=== PATIENT | male | born 1980 | race Caucasian/White ===

== ENCOUNTER 2016-09-10 08:55 | Inpatient (IN) | payer MEDICAID, OTHER ==
[~2016-09-10] VITALS: Ht 177.8 cm; Wt 77.3 kg
[~2016-09-10 08:55] MED LIST: DIVA500T35 PO; RISP1 PO; TRAZ-144 PO
[2016-09-10 13:33] VITALS: BP 105/53
[2016-09-10] MEDS ORDERED: HALOPERIDOL 5 MG TABLET PO PRN (13:45)
[2016-09-10] MEDS ORDERED: INFLUENZA VIRUS VACCINE QVS 2016-17 (3YR+)/PF 60 MCG/0.5 ML SYRINGE IM ONE (14:00)
[2016-09-10] MEDS ORDERED: PNEUMOCOCCAL VACCINE POLYVALENT 0.5 ML VIAL [PPSV23] IM ONE (14:30)
[2016-09-10] MEDS ORDERED: DEXT10TA19 PO (14:40)
[2016-09-10] MEDS ORDERED: QUET25TA PO (14:40)
[2016-09-10 16:00] VITALS: BP 127/76
[2016-09-10] MEDS: QUEtiapine FUMARATE 25 MG TABLET PO SCH (20:41)
[2016-09-11 06:15] VITALS: BP 112/67
[2016-09-11] MEDS ORDERED: LOPERAMIDE HCL 2 MG CAPSULE PO PRN (09:45)
[2016-09-11] MEDS ORDERED: PETROLATUM,WHITE 71 GM JELLY TP PRN (09:45)
[2016-09-11] MEDS ORDERED: MAGNESIUM HYDROXIDE SUSPENSION 30 ML UDCUP PO PRN (09:45)
[2016-09-11] MEDS ORDERED: IBUPROFEN 600 MG TABLET PO PRN (09:45)
[2016-09-11] MEDS ORDERED: BENZOCAINE/MENTHOL LOZENGE MM PRN (09:45)
[2016-09-11] MEDS ORDERED: ALBUTEROL SULFATE HFA 90 MCG/PUFF 8 GM INHALER IH PRN (09:45)
[2016-09-11] MEDS ORDERED: MAG HYDROX/AL HYDROX/SIMETH ES 30 ML SUSPENSION UDCUP PO PRN (09:45)
[2016-09-11] MEDS ORDERED: BACITRACIN 28.4 GM OINTMENT TP PRN (09:45)
[2016-09-11] MEDS ORDERED: ACETAMINOPHEN 325 MG TABLET PO PRN (09:45)
[2016-09-11] MEDS ORDERED: CloNIDine HCL 0.1 MG TABLET PO PRN (09:45)
[2016-09-11] MEDS ORDERED: ONDANSETRON HCL 4 MG TABLET PO PRN (09:45)
[2016-09-11] MEDS: PHENYTOIN SODIUM 100 MG ER CAPSULE PO SCH ×2 (13:00→13:15)
[2016-09-11 16:11] VITALS: BP 121/75
[2016-09-11] MEDS: LevETIRAcetam 500 MG TABLET PO SCH (16:51)
[2016-09-11] MEDS: QUEtiapine FUMARATE 25 MG TABLET PO SCH (20:31)
[2016-09-12 07:03] VITALS: BP 114/67
[2016-09-12] MEDS: LevETIRAcetam 500 MG TABLET PO SCH ×2 (08:54→16:05)
[2016-09-12 16:03] VITALS: BP 121/89
[2016-09-12] MEDS: LORazepam 2 MG TABLET PO PRN (16:05)
[2016-09-12] MEDS: QUEtiapine FUMARATE 25 MG TABLET PO SCH (20:26)
[2016-09-13] MEDS: LevETIRAcetam 500 MG TABLET PO SCH ×2 (09:00→16:59)
[2016-09-13 16:00] VITALS: BP 124/77
[2016-09-13] MEDS: DIVALPROEX SODIUM 500 MG DR TABLET PO SCH (16:59)
[2016-09-13] MEDS: RisperiDONE 2 MG TABLET PO SCH (16:59)
[2016-09-13] MEDS: LORazepam 2 MG TABLET PO PRN ×2 (16:59→21:05)
[2016-09-13] MEDS: ZOLPIDEM TARTRATE 10 MG TABLET PO PRN (20:36)
[2016-09-14 06:41] VITALS: BP 106/69
[2016-09-14] MEDS: LORazepam 2 MG TABLET PO PRN ×2 (06:46→17:10)
[2016-09-14] MEDS: LevETIRAcetam 500 MG TABLET PO SCH ×2 (09:00→17:10)
[2016-09-14] MEDS: RisperiDONE 2 MG TABLET PO SCH ×2 (09:00→17:00)
[2016-09-14] MEDS: DIVALPROEX SODIUM 500 MG DR TABLET PO SCH ×2 (09:00→17:00)
[2016-09-14 16:00] VITALS: BP 145/68
[2016-09-14] MEDS: ZOLPIDEM TARTRATE 10 MG TABLET PO PRN (21:02)
[2016-09-15 06:31] VITALS: BP 122/60
[2016-09-15] MEDS: RisperiDONE 2 MG TABLET PO SCH ×2 (09:00→17:00)
[2016-09-15] MEDS: DIVALPROEX SODIUM 500 MG DR TABLET PO SCH ×2 (09:00→17:00)
[2016-09-15] MEDS: LevETIRAcetam 500 MG TABLET PO SCH ×2 (09:37→17:16)
[2016-09-15] MEDS: NICOTINE 21 MG/24 HOUR PATCH TD SCH (12:09)
[2016-09-15] MEDS: LORazepam 2 MG TABLET PO PRN ×2 (14:52→20:28)
[2016-09-15 16:06] VITALS: BP 130/76
[2016-09-15] MEDS: QUEtiapine FUMARATE 300 MG TABLET PO SCH (20:28)
[2016-09-16 06:36] VITALS: BP 122/71
[2016-09-16] MEDS: DIVALPROEX SODIUM 500 MG DR TABLET PO SCH ×2 (09:00→16:21)
[2016-09-16] MEDS: NICOTINE 21 MG/24 HOUR PATCH TD SCH (09:13)
[2016-09-16] MEDS: LevETIRAcetam 500 MG TABLET PO SCH ×2 (09:13→16:20)
[2016-09-16 16:00] VITALS: BP 110/76
[2016-09-16] MEDS: LORazepam 2 MG TABLET PO PRN (20:26)
[2016-09-16] MEDS: QUEtiapine FUMARATE 300 MG TABLET PO SCH (20:26)
[2016-09-17 07:12] VITALS: BP 112/74
[2016-09-17] MEDS: DIVALPROEX SODIUM 500 MG DR TABLET PO SCH (09:00)
[2016-09-17] MEDS ORDERED: DIVA500T35 PO (09:12)
[2016-09-17] MEDS ORDERED: QUET300T2 PO (09:12)
[2016-09-17] MEDS: LevETIRAcetam 500 MG TABLET PO SCH (09:34)
[2016-09-17] MEDS: NICOTINE 21 MG/24 HOUR PATCH TD SCH (09:35)
== END 2016-09-17 10:10 | disposition home or self-care (01) | DRG 750 ==
LOC: B3A 13:44 → EDSTATUS 14:10
PROVIDERS: ADMIT Psychiatry & Neurology Psychiatry; ATTEND Psychiatry & Neurology Psychiatry
DX: F25.9 Schizoaffective disorder, unspecified (principal); G40.909 Epilepsy, unspecified, not intractable, without status epilepticus; F17.210 Nicotine dependence, cigarettes, uncomplicated; Z71.6 Tobacco abuse counseling; Z72.89 Other problems related to lifestyle; Z88.0 Allergy status to penicillin; Z28.21 Immunization not carried out because of patient refusal
CPT/HCPCS: 90471

== ENCOUNTER 2018-02-05 12:35 | Inpatient (IN) | payer SELFPAY ==
[~2018-02-05] VITALS: Ht 182.9 cm; Wt 88.0 kg
[2018-02-05 11:52] VITALS: BP 136/85
[~2018-02-05 12:35] MED LIST changes: +DIVA-78 PO; -DIVA500T35 PO; +QUET300T2 PO; -RISP1 PO; -TRAZ-144 PO
[2018-02-05] MEDS ORDERED: LORazepam 2 MG TABLET PO PRN (13:00)
[2018-02-05] MEDS ORDERED: ZOLPIDEM TARTRATE 10 MG TABLET PO PRN (13:00)
[2018-02-05] MEDS ORDERED: HALOPERIDOL 5 MG TABLET PO PRN (13:00)
[2018-02-05] MEDS ORDERED: RISP2 PO (13:06)
[2018-02-05] MEDS ORDERED: PHEN100C23 PO (13:06)
[2018-02-05] MEDS ORDERED: DIVA-76 PO (13:06)
[2018-02-05] MEDS ORDERED: LEVE250T55 PO (13:06)
[2018-02-05] MEDS ORDERED: PNEUMOCOCCAL VACCINE POLYVALENT 0.5 ML VIAL [PPSV23] IM ONE (13:30)
[2018-02-05 18:57] VITALS: BP 124/81
[2018-02-05] MEDS ORDERED: PETROLATUM,WHITE 71 GM JELLY TP PRN (21:45)
[2018-02-05] MEDS ORDERED: DOCUSATE SODIUM 100 MG CAPSULE PO PRN (21:45)
[2018-02-05] MEDS ORDERED: ACETAMINOPHEN 325 MG TABLET PO PRN (21:45)
[2018-02-05] MEDS ORDERED: MAG HYDROX/AL HYDROX/SIMETH ES 30 ML SUSPENSION UDCUP PO PRN (21:45)
[2018-02-05] MEDS ORDERED: CloNIDine HCL 0.1 MG TABLET PO PRN (21:45)
[2018-02-05] MEDS ORDERED: LOPERAMIDE HCL 2 MG CAPSULE PO PRN (21:45)
[2018-02-05] MEDS ORDERED: IBUPROFEN 400 MG TABLET PO PRN (21:45)
[2018-02-05] MEDS ORDERED: MAGNESIUM HYDROXIDE SUSPENSION 30 ML UDCUP PO PRN (21:45)
[2018-02-05] MEDS ORDERED: ONDANSETRON HCL 4 MG TABLET PO PRN (21:45)
[2018-02-05] MEDS ORDERED: ALBUTEROL SULFATE HFA 90 MCG/PUFF 8 GM INHALER IH PRN (21:45)
[2018-02-06 06:42] VITALS: BP 119/85
[2018-02-06] MEDS: PHENYTOIN SODIUM 100 MG ER CAPSULE PO SCH ×3 (08:50→17:00)
[2018-02-06] MEDS: LevETIRAcetam 500 MG TABLET PO SCH ×2 (08:50→17:28)
[2018-02-06] MEDS: NICOTINE 14 MG/24 HOUR PATCH TD SCH (09:18)
[2018-02-06] MEDS ORDERED: HydrOXYzine PAMOATE 25 MG CAPSULE PO PRN (13:00)
[2018-02-06] MEDS ORDERED: LORazepam 1 MG TABLET PO PRN (13:15)
[2018-02-06 16:24] VITALS: BP 110/70
[2018-02-06] MEDS: LORazepam 2 MG TABLET PO PRN (17:33)
[2018-02-07] MEDS: PHENYTOIN SODIUM 100 MG ER CAPSULE PO SCH ×3 (08:25→16:27)
[2018-02-07] MEDS: NICOTINE 14 MG/24 HOUR PATCH TD SCH (08:25)
[2018-02-07] MEDS: LevETIRAcetam 500 MG TABLET PO SCH ×2 (08:26→16:28)
[2018-02-07] MEDS: BuPROPion HCL XL 150 MG ER TABLET PO SCH (09:30)
[2018-02-07] MEDS: LORazepam 2 MG TABLET PO PRN (16:28)
[2018-02-07] MEDS: QUEtiapine FUMARATE 100 MG TABLET PO SCH (20:29)
[2018-02-08 08:35] VITALS: BP 122/84
[2018-02-08] MEDS: PHENYTOIN SODIUM 100 MG ER CAPSULE PO SCH (09:00)
[2018-02-08] MEDS: NICOTINE 14 MG/24 HOUR PATCH TD SCH (09:00)
[2018-02-08] MEDS: BuPROPion HCL XL 150 MG ER TABLET PO SCH (09:02)
[2018-02-08] MEDS: LevETIRAcetam 500 MG TABLET PO SCH ×2 (09:02→17:02)
[2018-02-08] MEDS: LORazepam 2 MG TABLET PO PRN (17:02)
[2018-02-08] MEDS: QUEtiapine FUMARATE 100 MG TABLET PO SCH (21:15)
[2018-02-09] MEDS: LevETIRAcetam 500 MG TABLET PO SCH ×2 (08:18→16:32)
[2018-02-09] MEDS: BuPROPion HCL XL 150 MG ER TABLET PO SCH (08:18)
[2018-02-09] MEDS: NICOTINE 14 MG/24 HOUR PATCH TD SCH (08:18)
[2018-02-09] MEDS: LORazepam 2 MG TABLET PO PRN ×2 (13:48→21:23)
[2018-02-09 20:42] VITALS: BP 132/91
[2018-02-09] MEDS: QUEtiapine FUMARATE 100 MG TABLET PO SCH (21:18)
[2018-02-10] MEDS: LevETIRAcetam 500 MG TABLET PO SCH (08:50)
[2018-02-10] MEDS: BuPROPion HCL XL 150 MG ER TABLET PO SCH (08:50)
[2018-02-10] MEDS: NICOTINE 14 MG/24 HOUR PATCH TD SCH ×2 (08:50→11:31)
[2018-02-10] MEDS ORDERED: BUPR-93 PO (08:55)
[2018-02-10] MEDS ORDERED: QUET100T PO (08:55)
[2018-02-10] MEDS: LORazepam 2 MG TABLET PO PRN (11:29)
== END 2018-02-10 13:30 | disposition home or self-care (01) | DRG 885 ==
LOC: EDSTATUS 12:35 → B3A 19:02 → EDSTATUS 19:10
PROVIDERS: ADMIT Psychiatry & Neurology Psychiatry; ATTEND Psychiatry & Neurology Psychiatry
DX: F25.0 Schizoaffective disorder, bipolar type (principal); F15.20 Other stimulant dependence, uncomplicated; J45.909 Unspecified asthma, uncomplicated; G40.909 Epilepsy, unspecified, not intractable, without status epilepticus; F41.9 Anxiety disorder, unspecified; F19.90 Other psychoactive substance use, unspecified, uncomplicated; F17.200 Nicotine dependence, unspecified, uncomplicated; F10.10 Alcohol abuse, uncomplicated; F12.90 Cannabis use, unspecified, uncomplicated; Z59.0 Homelessness; Z76.5 Malingerer [conscious simulation]; Z79.899 Other long term (current) drug therapy; Z91.5 Personal history of self-harm; Z85.72 Personal history of non-Hodgkin lymphomas; Z71.41 Alcohol abuse counseling and surveillance of alcoholic; Z71.6 Tobacco abuse counseling; Z88.0 Allergy status to penicillin
CPT/HCPCS: 90471

== ENCOUNTER 2018-02-05 13:13 | Emergency (ER) | payer SELFPAY ==
[~2018-02-05] VITALS: Ht 180.3 cm; Wt 100.0 kg
[~2018-02-05 13:13] MED LIST changes: +DIVA-76 PO; +LEVE250T55 PO; +PHEN100C23 PO; +RISP2 PO
[2018-02-05] MEDS ORDERED: LORazepam 2 MG TABLET PO ONE (14:30)
[2018-02-05 14:44] LABS: BASOPHILS % (AUTO) 1.1 % (0.0-2.0); EOSINOPHILS % (AUTO) 3.8 % (1.0-6.0); HEMATOCRIT 42.2 % (41-53); HEMOGLOBIN 14.2 g/dL (13.5-17.5); LYMPHOCYTES # (AUTO) 2.1 K/uL (1.0-4.8); LYMPHOCYTES % (AUTO) 22.2 % (22.0-44.0); MEAN CORPUSCULAR HEMOGLOBIN 28.2 pg (26.0-34.0); MEAN CORPUSCULAR HGB CONC 33.5 G/dL (31.0-37.0); MEAN CORPUSCULAR VOLUME 84 fL (80-100); MONOCYTES # (AUTO) 0.8 K/uL (0.1-1.0); MONOCYTES % (AUTO) 8.6 % (2.0-9.0); NEUTROPHILS % (AUTO) 64.3 % (40.0-70.0); PLATELET COUNT (AUTO) 349 K/uL (150-450); RED BLOOD CELL COUNT(AUTO) 5.03 MIL/uL (4.50-5.90); RED CELL DISTRIBUTION WIDTH 15.8 % (11.5-14.5)
[2018-02-05 15:01] LABS: ANION GAP 10 mmol/L (8-16); CALCIUM, TOTAL 9.1 mg/dL (8.8-10.5); CARBON DIOXIDE 28 mmol/L (22-29); CHLORIDE 103 mmol/L (98-107); CREATININE 0.99 mg/dL (0.60-1.30); GLOMERULAR FILTR. RATE CALC > 60 mL/min (>60); GLUCOSE,RANDOM 103 mg/dL (70-110); SODIUM SERUM 141 mmol/L (136-145); UREA NITROGEN, BLOOD 16 mg/dL (7-18)
[2018-02-05 15:07] LABS: ALANINE AMINOTRANSFERASE 20 U/L (12-78); ALBUMIN 3.4 g/dL (3.4-5.0); ALKALINE PHOSPHATASE 68 U/L (46-116); ASPARTATE AMINOTRANSFERASE 13 U/L (15-37); BILIRUBIN,TOTAL 0.3 mg/dL (0.1-1.0); TOTAL PROTEIN, SERUM 7.1 g/dL (6.4-8.2)
[2018-02-05 15:18] LABS: PHENYTOIN (DILANTIN) 1.2 mcg/mL (10.0-20.0)
[2018-02-05 15:19] LABS: APPEARANCE,URINE CLOUDY (CLEAR); GLUCOSE, URINE (UA) NEGATIVE (NEGATIVE); KETONES,URINE NEGATIVE (NEGATIVE); LEUKOCYTE ESTERASE ,URINE NEGATIVE (NEGATIVE); NITRATE,URINE NEGATIVE (NEGATIVE); OCCULT BLOOD,URINE NEGATIVE (NEGATIVE); PH,URINE 5.5 (5.0-8.0); PROTEIN,URINE POS 1+ (NEGATIVE)
[2018-02-05 15:23] LABS: VALPROIC ACID < 3 mcg/mL (50-100)
[2018-02-05 15:23] LABS: BILIRUBIN,URINE PRELIM. POSITIVE (NEGATIVE)
[2018-02-05 15:25] LABS: AMPHET/METH SCREEN,URINE POSITIVE (NEGATIVE); BARBITURATE SCREEN, URINE NEGATIVE (NEGATIVE); BENZODIAZEPINES SCREEN,URINE NEGATIVE (NEGATIVE); CANNABINOID SCREEN,URINE POSITIVE (NEGATIVE); COCAINE SCREEN,URINE NEGATIVE (NEGATIVE); METHADONE SCREEN, URINE NEGATIVE (NEGATIVE); OPIATE SCREEN,URINE NEGATIVE (NEGATIVE); PHENCYCLIDINE SCREEN,URINE NEGATIVE (NEGATIVE)
[2018-02-05 15:43] LABS: BACTERIA,URINE Few /HPF (None Seen); RBC,URINE 0-2 /HPF (0-2); WBC,URINE 0-2 /HPF (0-5)
[2018-02-05 15:44] LABS: SQUAMOUS EPITHELIAL CELL,UR Rare /LPF (None Seen)
[2018-02-05 15:46] LABS: CALCIUM OXALATE CRYSTALS,UR Many /LPF (None Seen); MUCUS,URINE Moderate LPF (None Seen)
[2018-02-05 15:48] VITALS: BP 119/80
== END 2018-02-05 17:49 | disposition home or self-care (01) ==
LOC: EMS 13:15
DX: G40.909 Epilepsy, unspecified, not intractable, without status epilepticus (principal); F17.210 Nicotine dependence, cigarettes, uncomplicated; Z88.0 Allergy status to penicillin
CPT/HCPCS: 93005; 99285

== ENCOUNTER 2018-03-19 18:31 | Inpatient (IN) | payer MEDICAID ==
[~2018-03-19] VITALS: Ht 165.1 cm; Wt 86.0 kg
[~2018-03-19 18:31] MED LIST changes: +BUSP10TA23 PO; -DIVA-76 PO; -DIVA-78 PO; +MULT-248 PO; -PHEN100C23 PO; +QUET25TA PO; -QUET300T2 PO; -RISP2 PO; +VITA1TAB22 PO
[2018-03-19 20:23] LABS: GLUCOSE,POINT OF CARE 107 MG/DL (70-110)
[2018-03-19 20:33] LABS: BASOPHILS % (AUTO) 0.7 % (0.0-2.0); EOSINOPHILS % (AUTO) 1.6 % (1.0-6.0); HEMATOCRIT 43.8 % (41-53); HEMOGLOBIN 14.7 g/dL (13.5-17.5); LYMPHOCYTES # (AUTO) 2.7 K/uL (1.0-4.8); LYMPHOCYTES % (AUTO) 25.1 % (22.0-44.0); MEAN CORPUSCULAR HEMOGLOBIN 28.3 pg (26.0-34.0); MEAN CORPUSCULAR HGB CONC 33.5 G/dL (31.0-37.0); MEAN CORPUSCULAR VOLUME 84 fL (80-100); MONOCYTES % (AUTO) 9.4 % (2.0-9.0); NEUTROPHILS # (AUTO) 6.8 K/uL (1.8-7.7); NEUTROPHILS % (AUTO) 63.2 % (40.0-70.0); PLATELET COUNT (AUTO) 459 K/uL (150-450); RED BLOOD CELL COUNT(AUTO) 5.19 MIL/uL (4.50-5.90); RED CELL DISTRIBUTION WIDTH 15.4 % (11.5-14.5)
[2018-03-19 21:01] LABS: ANION GAP 10 mmol/L (8-16); CALCIUM, TOTAL 9.7 mg/dL (8.8-10.5); CARBON DIOXIDE 25 mmol/L (22-29); CHLORIDE 104 mmol/L (98-107); GLOMERULAR FILTR. RATE CALC > 60 mL/min (>60); GLUCOSE,RANDOM 100 mg/dL (70-110); POTASSIUM 3.7 mmol/L (3.5-5.1); SODIUM SERUM 139 mmol/L (136-145); UREA NITROGEN, BLOOD 16 mg/dL (7-18)
[2018-03-19 21:06] LABS: ALANINE AMINOTRANSFERASE 16 U/L (12-78); ALBUMIN 3.8 g/dL (3.4-5.0); ALKALINE PHOSPHATASE 61 U/L (46-116); ASPARTATE AMINOTRANSFERASE 15 U/L (15-37); BILIRUBIN,TOTAL 0.4 mg/dL (0.1-1.0); TOTAL PROTEIN, SERUM 7.9 g/dL (6.4-8.2)
[2018-03-19 21:23] LABS: APPEARANCE,URINE CLEAR (CLEAR); BILIRUBIN,URINE NEGATIVE (NEGATIVE); GLUCOSE, URINE (UA) NEGATIVE (NEGATIVE); KETONES,URINE TRACE mg/dL (NEGATIVE); LEUKOCYTE ESTERASE ,URINE NEGATIVE (NEGATIVE); NITRATE,URINE NEGATIVE (NEGATIVE); OCCULT BLOOD,URINE MODERATE (NEGATIVE); PROTEIN,URINE NEGATIVE (NEGATIVE); UROBILINOGEN,URINE 0.2 mg/dL (<=1.0)
[2018-03-19 21:26] LABS: INR 1.1 (0.9-1.1)
[2018-03-19 21:27] LABS: AMPHET/METH SCREEN,URINE POSITIVE (NEGATIVE); BARBITURATE SCREEN, URINE NEGATIVE (NEGATIVE); BENZODIAZEPINES SCREEN,URINE NEGATIVE (NEGATIVE); CANNABINOID SCREEN,URINE POSITIVE (NEGATIVE); COCAINE SCREEN,URINE NEGATIVE (NEGATIVE); METHADONE SCREEN, URINE NEGATIVE (NEGATIVE); OPIATE SCREEN,URINE NEGATIVE (NEGATIVE)
[2018-03-19 21:31] LABS: PHENCYCLIDINE SCREEN,URINE NEGATIVE (NEGATIVE)
[2018-03-19 21:37] LABS: AMMONIA 90 umol/L (11-32)
[2018-03-19 21:42] LABS: TROPONIN I < 0.02 ng/mL (0.00-0.05)
[2018-03-19 21:46] LABS: WBC,URINE 0-2 /HPF (0-5)
[2018-03-19 21:47] LABS: BACTERIA,URINE Rare /HPF (None Seen); SQUAMOUS EPITHELIAL CELL,UR Rare /LPF (None Seen)
[2018-03-19 21:54] LABS: CREATINE KINASE MB 0.5 ng/mL (0-5); CREATINE KINASE, TOTAL ONLY 122 U/L (39-308)
[2018-03-19] MEDS ORDERED: LACTULOSE 200 GM/300 ML RECTAL SOLUTION PR ONE (22:00)
[2018-03-19] MEDS ORDERED: ONDANSETRON HCL 4 MG/2 ML VIAL IVP PRN ×2 (22:30→22:45)
[2018-03-19] MEDS ORDERED: 0.9% SODIUM CHLORIDE 10 ML SYRINGE IVP PRN (22:30)
[2018-03-19] MEDS ORDERED: ACETAMINOPHEN 325 MG TABLET PO PRN ×2 (22:30→22:45)
[2018-03-19] MEDS ORDERED: BISACODYL 10 MG RECTAL RECTAL SUPPOSITORY PR PRN (22:45)
[2018-03-19] MEDS ORDERED: HYDROCODONE/ACETAMINOPHEN 5-325 MG TABLET PO PRN (22:45)
[2018-03-19] MEDS ORDERED: MAGNESIUM HYDROXIDE SUSPENSION 30 ML UDCUP PO PRN (22:45)
[2018-03-19] MEDS ORDERED: ZOLPIDEM TARTRATE 5 MG TABLET PO PRN (22:45)
[2018-03-19] MEDS ORDERED: MORPHINE SULFATE 2 MG/ML SYRINGE IVP PRN (22:45)
[2018-03-19 23:15] VITALS: BP 140/107
[2018-03-20] MEDS: LACTULOSE 20 GM/30 ML SOLUTION UDCUP PO SCH ×3 (02:38→20:50)
[2018-03-20 05:13] VITALS: BP 122/79
[2018-03-20] MEDS: HEPARIN SODIUM,PORCINE 5,000 UNITS/ML VIAL SQ SCH ×3 (08:00→16:00)
[2018-03-20 08:03] LABS: BASOPHILS % (AUTO) 0.4 % (0.0-2.0); EOSINOPHILS % (AUTO) 0.8 % (1.0-6.0); HEMATOCRIT 45.7 % (41-53); HEMOGLOBIN 15.5 g/dL (13.5-17.5); LYMPHOCYTES # (AUTO) 0.8 K/uL (1.0-4.8); LYMPHOCYTES % (AUTO) 5.4 % (22.0-44.0); MEAN CORPUSCULAR HEMOGLOBIN 28.3 pg (26.0-34.0); MEAN CORPUSCULAR HGB CONC 33.8 G/dL (31.0-37.0); MEAN CORPUSCULAR VOLUME 84 fL (80-100); MONOCYTES # (AUTO) 0.7 K/uL (0.1-1.0); MONOCYTES % (AUTO) 4.9 % (2.0-9.0); NEUTROPHILS # (AUTO) 13.3 K/uL (1.8-7.7); PLATELET COUNT (AUTO) 502 K/uL (150-450); RED BLOOD CELL COUNT(AUTO) 5.46 MIL/uL (4.50-5.90); RED CELL DISTRIBUTION WIDTH 15.5 % (11.5-14.5)
[2018-03-20 08:05] VITALS: BP 129/87
[2018-03-20 08:05] LABS: NEUTROPHILS % (AUTO) 88.5 % (40.0-70.0)
[2018-03-20 08:28] LABS: ALANINE AMINOTRANSFERASE 20 U/L (12-78); ALBUMIN 4.2 g/dL (3.4-5.0); ALKALINE PHOSPHATASE 73 U/L (46-116); ANION GAP 13 mmol/L (8-16); ASPARTATE AMINOTRANSFERASE 11 U/L (15-37); BILIRUBIN,TOTAL 0.5 mg/dL (0.1-1.0); CALCIUM, TOTAL 9.9 mg/dL (8.8-10.5); CARBON DIOXIDE 24 mmol/L (22-29); CHLORIDE 104 mmol/L (98-107); CREATININE 1.22 mg/dL (0.60-1.30); GLOMERULAR FILTR. RATE CALC > 60 mL/min (>60); GLUCOSE,RANDOM 103 mg/dL (70-110); SODIUM SERUM 141 mmol/L (136-145); TOTAL PROTEIN, SERUM 8.9 g/dL (6.4-8.2); UREA NITROGEN, BLOOD 14 mg/dL (7-18)
[2018-03-20] MEDS: LevETIRAcetam 250 MG TABLET PO SCH ×2 (08:42→20:50)
[2018-03-20] MEDS: DOCUSATE SODIUM 100 MG CAPSULE PO SCH ×2 (08:42→20:50)
[2018-03-20] MEDS: MULTIVITAMINS WITH MINERALS, THERAPEUTIC TABLET PO SCH (08:42)
[2018-03-20] MEDS: VITAMIN B COMPLEX ER TABLET PO SCH (08:42)
[2018-03-20] MEDS: PANTOPRAZOLE SODIUM 40 MG DR TABLET PO SCH (08:42)
[2018-03-20] MEDS ORDERED: LACTULOSE 200 GM/300 ML RECTAL SOLUTION PR SCH (09:00)
[2018-03-20] MEDS ORDERED: MAGNESIUM SULFATE 2 GM/WATER 50 ML IV PRN (10:45)
[2018-03-20] MEDS ORDERED: POTASSIUM CHLORIDE 20 MEQ ER TABLET PO PRN (10:45)
[2018-03-20] MEDS ORDERED: MAGNESIUM OXIDE 400 MG TABLET PO PRN (10:45)
[2018-03-20] MEDS ORDERED: POTASSIUM CHL 10 MEQ/WATER 50 ML IV PRN (10:45)
[2018-03-20] MEDS ORDERED: MAGNESIUM SULFATE 4 GM/WATER 100 ML IV PRN (10:45)
[2018-03-20 11:45] VITALS: BP 119/78
[2018-03-20 15:54] VITALS: BP 114/89
[2018-03-20 19:41] VITALS: BP 105/67
[2018-03-20 23:24] VITALS: BP 115/73
[2018-03-21 06:22] LABS: BASOPHILS % (AUTO) 0.6 % (0.0-2.0); EOSINOPHILS % (AUTO) 2.7 % (1.0-6.0); HEMATOCRIT 45.8 % (41-53); LYMPHOCYTES # (AUTO) 2.1 K/uL (1.0-4.8); LYMPHOCYTES % (AUTO) 22.6 % (22.0-44.0); MEAN CORPUSCULAR HEMOGLOBIN 27.6 pg (26.0-34.0); MEAN CORPUSCULAR HGB CONC 32.8 G/dL (31.0-37.0); MEAN CORPUSCULAR VOLUME 84 fL (80-100); MONOCYTES # (AUTO) 0.9 K/uL (0.1-1.0); MONOCYTES % (AUTO) 9.1 % (2.0-9.0); NEUTROPHILS # (AUTO) 6.1 K/uL (1.8-7.7); PLATELET COUNT (AUTO) 482 K/uL (150-450); RED BLOOD CELL COUNT(AUTO) 5.44 MIL/uL (4.50-5.90); RED CELL DISTRIBUTION WIDTH 15.3 % (11.5-14.5)
[2018-03-21 07:04] LABS: ANION GAP 12 mmol/L (8-16); CARBON DIOXIDE 22 mmol/L (22-29); CHLORIDE 103 mmol/L (98-107); CREATININE 1.03 mg/dL (0.60-1.30); GLOMERULAR FILTR. RATE CALC > 60 mL/min (>60); GLUCOSE,RANDOM 86 mg/dL (70-110); POTASSIUM 3.8 mmol/L (3.5-5.1); SODIUM SERUM 137 mmol/L (136-145); UREA NITROGEN, BLOOD 16 mg/dL (7-18)
[2018-03-21 07:10] VITALS: BP 116/72
[2018-03-21] MEDS: LACTULOSE 20 GM/30 ML SOLUTION UDCUP PO SCH (08:06)
[2018-03-21] MEDS: MULTIVITAMINS WITH MINERALS, THERAPEUTIC TABLET PO SCH (08:32)
[2018-03-21] MEDS: HEPARIN SODIUM,PORCINE 5,000 UNITS/ML VIAL SQ SCH ×2 (08:32)
[2018-03-21] MEDS: VITAMIN B COMPLEX ER TABLET PO SCH (08:32)
[2018-03-21] MEDS: PANTOPRAZOLE SODIUM 40 MG DR TABLET PO SCH (08:32)
[2018-03-21] MEDS: LevETIRAcetam 250 MG TABLET PO SCH (08:33)
[2018-03-21] MEDS: DOCUSATE SODIUM 100 MG CAPSULE PO SCH (08:33)
[2018-03-21 11:49] VITALS: BP 123/78
[2018-03-21] MEDS ORDERED: LACT30L PO (14:34)
== END 2018-03-21 15:20 | disposition home or self-care (01) | DRG 279 ==
LOC: EMS 18:33 → 6N 22:00
PROVIDERS: ADMIT Internal Medicine; ATTEND Internal Medicine
DX: K72.00 Acute and subacute hepatic failure without coma (principal); F20.9 Schizophrenia, unspecified; F10.10 Alcohol abuse, uncomplicated; F17.200 Nicotine dependence, unspecified, uncomplicated; F41.9 Anxiety disorder, unspecified; G40.909 Epilepsy, unspecified, not intractable, without status epilepticus; I10 Essential (primary) hypertension; J45.909 Unspecified asthma, uncomplicated; Z85.72 Personal history of non-Hodgkin lymphomas; Z59.0 Homelessness; Z71.41 Alcohol abuse counseling and surveillance of alcoholic; Z71.6 Tobacco abuse counseling; Z79.899 Other long term (current) drug therapy; Z88.0 Allergy status to penicillin
CPT/HCPCS: 70450; 76700; 83735; 87040; 99285; G0480; J1644

== ENCOUNTER 2019-01-11 21:33 | Inpatient (IN) | payer MEDICAID ==
[~2019-01-11] VITALS: Ht 180.3 cm; Wt 109.3 kg
[~2019-01-11 21:33] MED LIST changes: +LACT30L PO; +LAMO5TAB3 PO
[2019-01-11] MEDS ORDERED: HALOPERIDOL 5 MG TABLET PO PRN (22:15)
[2019-01-11] MEDS ORDERED: ZOLPIDEM TARTRATE 10 MG TABLET PO PRN (22:15)
[2019-01-11 22:42] VITALS: BP 140/93
[2019-01-11] MEDS ORDERED: PNEUMOCOCCAL VACCINE POLYVALENT 0.5 ML VIAL [PPSV23] IM ONE (22:45)
[2019-01-12 00:23] VITALS: BP 132/90
[2019-01-12] MEDS ORDERED: DOCUSATE SODIUM 100 MG CAPSULE PO PRN (07:00)
[2019-01-12] MEDS ORDERED: ALBUTEROL SULFATE HFA 90 MCG/PUFF 8 GM INHALER IH PRN (07:00)
[2019-01-12] MEDS ORDERED: GuaiFENesin/D-METHORPHAN [SUGAR-FREE] 200-20MG/10 ML SYRUP UDCUP PO PRN (07:00)
[2019-01-12] MEDS ORDERED: CloNIDine HCL 0.1 MG TABLET PO PRN (07:00)
[2019-01-12] MEDS ORDERED: IBUPROFEN 400 MG TABLET PO PRN (07:00)
[2019-01-12] MEDS ORDERED: ONDANSETRON HCL 4 MG TABLET PO PRN (07:00)
[2019-01-12] MEDS ORDERED: MAG HYDROX/AL HYDROX/SIMETH ES 30 ML SUSPENSION UDCUP PO PRN (07:00)
[2019-01-12] MEDS ORDERED: PETROLATUM,WHITE 28 GM JELLY TP PRN (07:00)
[2019-01-12] MEDS ORDERED: LOPERAMIDE HCL 2 MG CAPSULE PO PRN (07:00)
[2019-01-12] MEDS ORDERED: MAGNESIUM HYDROXIDE SUSPENSION 30 ML UDCUP PO PRN (07:00)
[2019-01-12] MEDS ORDERED: ACETAMINOPHEN 325 MG TABLET PO PRN (07:00)
[2019-01-12] MEDS ORDERED: NICOTINE 14 MG/24 HOUR PATCH TD PRN (07:00)
[2019-01-12 08:41] LABS: BASOPHILS % (AUTO) 0.4 % (0.0-2.0); EOSINOPHILS % (AUTO) 3.2 % (1.0-6.0); HEMOGLOBIN 12.1 g/dL (13.5-17.5); LYMPHOCYTES % (AUTO) 22.9 % (22.0-44.0); MEAN CORPUSCULAR HEMOGLOBIN 27.4 pg (26.0-34.0); MEAN CORPUSCULAR HGB CONC 31.8 G/dL (31.0-37.0); MEAN CORPUSCULAR VOLUME 86 fL (80-100); MONOCYTES # (AUTO) 0.9 K/uL (0.1-1.0); MONOCYTES % (AUTO) 10.5 % (2.0-9.0); NEUTROPHILS # (AUTO) 5.4 K/uL (1.8-7.7); PLATELET COUNT (AUTO) 276 K/uL (150-450); RED BLOOD CELL COUNT(AUTO) 4.42 MIL/uL (4.50-5.90); RED CELL DISTRIBUTION WIDTH 15.1 % (11.5-14.5)
[2019-01-12] MEDS: LACTULOSE 20 GM/30 ML SOLUTION UDCUP PO SCH ×3 (08:44→16:44)
[2019-01-12] MEDS: MULTIVITAMINS WITH MINERALS, THERAPEUTIC TABLET PO SCH (08:44)
[2019-01-12 08:49] LABS: HEMOGLOBIN A1C 6.6 % (4.5-6.2)
[2019-01-12 08:59] LABS: ALANINE AMINOTRANSFERASE 23 U/L (12-78); ALKALINE PHOSPHATASE 57 U/L (46-116); ANION GAP 7 mmol/L (8-16); ASPARTATE AMINOTRANSFERASE 24 U/L (15-37); BILIRUBIN,TOTAL 0.5 mg/dL (0.1-1.0); CALCIUM, TOTAL 8.4 mg/dL (8.8-10.5); CARBON DIOXIDE 24 mmol/L (22-29); CHLORIDE 109 mmol/L (98-107); CHOL/HDL RATIO 5.5 (4.2-7.3); CHOLESTEROL 154 mg/dL (131-200); CREATININE 0.89 mg/dL (0.60-1.30); FREE T4 (FREE THYROXINE) 1.28 ng/dL (0.76-1.46); GLOMERULAR FILTR. RATE CALC > 60 mL/min (>60); GLUCOSE,RANDOM 74 mg/dL (70-110); HDL CHOLESTEROL 28 mg/dL (40-60); LDL CHOL (CALC.) 110 mg/dL (0-130); POTASSIUM 3.8 mmol/L (3.5-5.1); SODIUM SERUM 140 mmol/L (136-145); TOTAL PROTEIN, SERUM 6.1 g/dL (6.4-8.2); TRIGLYCERIDES 81 mg/dL (15-150); UREA NITROGEN, BLOOD 16 mg/dL (7-18)
[2019-01-12] MEDS ORDERED: [UNRECOGNIZED DRUG - OTHER] PO SCH (09:00)
[2019-01-12 12:02] VITALS: BP 114/79
[2019-01-12] MEDS: BusPIRone HCL 10 MG TABLET PO SCH (16:44)
[2019-01-12 17:09] VITALS: BP 110/75
[2019-01-12] MEDS: QUEtiapine FUMARATE 25 MG TABLET PO SCH (20:20)
[2019-01-12] MEDS: LORazepam 2 MG TABLET PO PRN (20:41)
[2019-01-13 07:10] VITALS: BP 108/70
[2019-01-13 07:45] VITALS: BP 129/78
[2019-01-13 08:00] VITALS: BP 129/78
[2019-01-13] MEDS: BusPIRone HCL 10 MG TABLET PO SCH ×3 (08:07→17:00)
[2019-01-13] MEDS: LACTULOSE 20 GM/30 ML SOLUTION UDCUP PO SCH ×3 (08:07→17:00)
[2019-01-13] MEDS: MULTIVITAMINS WITH MINERALS, THERAPEUTIC TABLET PO SCH (08:07)
[2019-01-13 16:14] VITALS: BP 118/76
[2019-01-13] MEDS: QUEtiapine FUMARATE 25 MG TABLET PO SCH (21:00)
[2019-01-13] MEDS: LORazepam 2 MG TABLET PO PRN (22:54)
[2019-01-14 06:36] VITALS: BP 131/76
[2019-01-14 08:06] VITALS: BP 108/61
[2019-01-14] MEDS: MULTIVITAMINS WITH MINERALS, THERAPEUTIC TABLET PO SCH (09:00)
[2019-01-14] MEDS: BusPIRone HCL 10 MG TABLET PO SCH (09:00)
[2019-01-14] MEDS: LACTULOSE 20 GM/30 ML SOLUTION UDCUP PO SCH ×3 (09:00→16:42)
[2019-01-14] MEDS ORDERED: LAMO25 PO (12:12)
[2019-01-14 16:00] VITALS: BP 142/89
[2019-01-14] MEDS: BusPIRone HCL 15 MG TABLET PO SCH (16:41)
[2019-01-14] MEDS ORDERED: DIVALPROEX SODIUM 250 MG ER TABLET PO SCH (21:00)
[2019-01-14] MEDS ORDERED: MIRTAZAPINE 15 MG TABLET PO SCH (21:00)
[2019-01-14] MEDS: LORazepam 2 MG TABLET PO PRN (22:28)
[2019-01-15 06:28] VITALS: BP 112/74
[2019-01-15] MEDS ORDERED: BUSP15 PO (08:35)
[2019-01-15] MEDS ORDERED: DIVA250T45 PO (08:36)
[2019-01-15] MEDS ORDERED: MIRT15 PO (08:36)
[2019-01-15] MEDS: LACTULOSE 20 GM/30 ML SOLUTION UDCUP PO SCH ×3 (09:00→16:32)
[2019-01-15] MEDS: BusPIRone HCL 15 MG TABLET PO SCH ×2 (09:07→16:32)
[2019-01-15] MEDS: MULTIVITAMINS WITH MINERALS, THERAPEUTIC TABLET PO SCH (09:07)
[2019-01-15 16:15] VITALS: BP 144/98
== END 2019-01-15 17:31 | disposition home or self-care (01) | DRG 750 ==
LOC: B2S 22:04 → EDSTATUS 22:14 → B2S 01-15 01:49
PROVIDERS: ADMIT Psychiatry & Neurology Psychiatry; ATTEND Psychiatry & Neurology Psychiatry
DX: F25.0 Schizoaffective disorder, bipolar type (principal); K72.90 Hepatic failure, unspecified without coma; R45.850 Homicidal ideations; R45.851 Suicidal ideations; K74.60 Unspecified cirrhosis of liver; G40.909 Epilepsy, unspecified, not intractable, without status epilepticus; F10.10 Alcohol abuse, uncomplicated; F15.90 Other stimulant use, unspecified, uncomplicated; F41.9 Anxiety disorder, unspecified; I10 Essential (primary) hypertension; J45.909 Unspecified asthma, uncomplicated; Z59.0 Homelessness; Z79.899 Other long term (current) drug therapy; Z85.72 Personal history of non-Hodgkin lymphomas; Z91.19 Patient's noncompliance with other medical treatment and regimen; Z88.8 Allergy status to other drugs, medicaments and biological substances; Z88.0 Allergy status to penicillin
CPT/HCPCS: 83036; 84439; 84443; 87081

== ENCOUNTER 2019-01-30 18:52 | Emergency (ER) | payer MEDICAID ==
[~2019-01-30] VITALS: Ht 180.3 cm; Wt 108.0 kg
[~2019-01-30 18:52] MED LIST changes: -BUSP10TA23 PO; +BUSP15 PO; +DIVA250T45 PO; -LACT30L PO; -LAMO5TAB3 PO; -LEVE250T55 PO; +LEVE500T53 PO; +MIRT15 PO; -MULT-248 PO; -QUET25TA PO; -VITA1TAB22 PO
[2019-01-30] MEDS ORDERED: SODIUM CHLORIDE 0.9% 0 ML ONE (19:44)
[2019-01-30] MEDS ORDERED: IOVERSOL 320 MG/ML 100 ML VIAL ONE (19:44)
[2019-01-30] MEDS ORDERED: SODIUM CHLORIDE 0.9% 1,000 ML IV ONE (19:45)
[2019-01-30 20:21] LABS: BASOPHILS % (AUTO) 0.5 % (0.0-2.0); EOSINOPHILS % (AUTO) 1.1 % (1.0-6.0); HEMATOCRIT 43.7 % (41-53); HEMOGLOBIN 13.9 g/dL (13.5-17.5); LYMPHOCYTES # (AUTO) 2.3 K/uL (1.0-4.8); LYMPHOCYTES % (AUTO) 24.2 % (22.0-44.0); MEAN CORPUSCULAR HEMOGLOBIN 27.1 pg (26.0-34.0); MEAN CORPUSCULAR HGB CONC 31.7 G/dL (31.0-37.0); MEAN CORPUSCULAR VOLUME 85 fL (80-100); MONOCYTES % (AUTO) 10.2 % (2.0-9.0); PLATELET COUNT (AUTO) 340 K/uL (150-450); RED BLOOD CELL COUNT(AUTO) 5.12 MIL/uL (4.50-5.90); RED CELL DISTRIBUTION WIDTH 15.8 % (11.5-14.5)
[2019-01-30 20:27] LABS: ANION GAP 12 mmol/L (8-16); CALCIUM, TOTAL 9.6 mg/dL (8.8-10.5); CARBON DIOXIDE 26 mmol/L (22-29); CHLORIDE 108 mmol/L (98-107); CREATININE 1.24 mg/dL (0.60-1.30); GLOMERULAR FILTR. RATE CALC > 60 mL/min (>60); GLUCOSE,RANDOM 92 mg/dL (70-110); POTASSIUM 3.6 mmol/L (3.5-5.1); SODIUM SERUM 146 mmol/L (136-145); UREA NITROGEN, BLOOD 21 mg/dL (7-18)
[2019-01-30 20:33] LABS: AMMONIA 15 umol/L (11-32); LACTIC ACID 0.9 mmol/L (0.4-2.0)
[2019-01-30 20:34] LABS: TROPONIN I < 0.02 ng/mL (0.00-0.05)
[2019-01-30 20:37] LABS: SALICYLATE < 2.8 mg/dL (2.8-20.0)
[2019-01-30 20:53] LABS: ALANINE AMINOTRANSFERASE 25 U/L (12-78); ALBUMIN 3.7 g/dL (3.4-5.0); ALKALINE PHOSPHATASE 64 U/L (46-116); ASPARTATE AMINOTRANSFERASE 16 U/L (15-37); BILIRUBIN,TOTAL 0.5 mg/dL (0.1-1.0); CREATINE KINASE, TOTAL ONLY 102 U/L (39-308); TOTAL PROTEIN, SERUM 7.7 g/dL (6.4-8.2); VALPROIC ACID 4 mcg/mL (50-100)
[2019-01-30 20:55] LABS: ACETAMINOPHEN < 2 mcg/mL (10-30)
[2019-01-30 22:50] LABS: APPEARANCE,URINE CLEAR (CLEAR); GLUCOSE, URINE (UA) NEGATIVE (NEGATIVE); KETONES,URINE 40 mg/dL (NEGATIVE); LEUKOCYTE ESTERASE ,URINE NEGATIVE (NEGATIVE); NITRATE,URINE NEGATIVE (NEGATIVE); OCCULT BLOOD,URINE NEGATIVE (NEGATIVE); PH,URINE 5.5 (5.0-8.0); PROTEIN,URINE POS 1+ (NEGATIVE); UROBILINOGEN,URINE 0.2 mg/dL (<=1.0)
[2019-01-30 22:51] LABS: BILIRUBIN,URINE PRELIM. POSITIVE (NEGATIVE)
[2019-01-30 22:53] LABS: AMPHET/METH SCREEN,URINE POSITIVE (NEGATIVE); BARBITURATE SCREEN, URINE NEGATIVE (NEGATIVE); BENZODIAZEPINES SCREEN,URINE NEGATIVE (NEGATIVE); CANNABINOID SCREEN,URINE POSITIVE (NEGATIVE); COCAINE SCREEN,URINE NEGATIVE (NEGATIVE); METHADONE SCREEN, URINE NEGATIVE (NEGATIVE); OPIATE SCREEN,URINE NEGATIVE (NEGATIVE)
[2019-01-30 22:55] LABS: PHENCYCLIDINE SCREEN,URINE NEGATIVE (NEGATIVE)
[2019-01-30 22:56] LABS: BACTERIA,URINE None Seen /HPF (None Seen); RBC,URINE 0-2 /HPF (0-2); WBC,URINE 0-2 /HPF (0-5)
[2019-01-30 22:57] LABS: MUCUS,URINE Moderate LPF (None Seen); SQUAMOUS EPITHELIAL CELL,UR Rare /LPF (None Seen)
[2019-01-30 23:59] VITALS: BP 142/88
== END 2019-01-31 00:03 | disposition home or self-care (01) ==
LOC: EDSTATUS 18:52 → EMS 19:12
DX: R41.82 Altered mental status, unspecified (principal); F12.10 Cannabis abuse, uncomplicated; F15.10 Other stimulant abuse, uncomplicated; F31.9 Bipolar disorder, unspecified; F20.9 Schizophrenia, unspecified; F17.210 Nicotine dependence, cigarettes, uncomplicated; Z59.0 Homelessness; Z88.0 Allergy status to penicillin; Z91.018 Allergy to other foods
CPT/HCPCS: 36415; 70450; 71045; 74176; 80053; 80164; 80307; 81001; 82140; 82550; 83605; 84484; 85025; 87040; 93005; 96360; 99285; G0480; G0482; J7030; G0481; J7050

== ENCOUNTER 2019-03-07 21:14 | Inpatient (IN) | payer MEDICAID ==
[~2019-03-07] VITALS: Ht 180.3 cm; Wt 104.8 kg
[2019-03-07] MEDS ORDERED: TRAZ-252 PO (21:56)
[2019-03-07] MEDS ORDERED: OMEP20 PO (21:56)
[2019-03-07] MEDS ORDERED: DIVA125T32 PO (21:56)
[2019-03-07] MEDS ORDERED: LEVE250T55 PO (21:56)
[2019-03-07] MEDS ORDERED: BUPR-93 PO (21:56)
[2019-03-07] MEDS ORDERED: RISP2 PO (21:56)
[2019-03-07] MEDS ORDERED: PHENY100 PO (21:57)
[2019-03-07] MEDS ORDERED: HALOPERIDOL 5 MG TABLET PO PRN (22:00)
[2019-03-08 00:43] VITALS: BP 138/71
[2019-03-08] MEDS ORDERED: MAG HYDROX/AL HYDROX/SIMETH ES 30 ML SUSPENSION UDCUP PO PRN (07:30)
[2019-03-08] MEDS ORDERED: DOCUSATE SODIUM 100 MG CAPSULE PO PRN (07:30)
[2019-03-08] MEDS ORDERED: PETROLATUM,WHITE 28 GM JELLY TP PRN (07:30)
[2019-03-08] MEDS ORDERED: NICOTINE 14 MG/24 HOUR PATCH TD PRN (07:30)
[2019-03-08] MEDS ORDERED: GuaiFENesin/D-METHORPHAN [SUGAR-FREE] 200-20MG/10 ML SYRUP UDCUP PO PRN (07:30)
[2019-03-08] MEDS ORDERED: CloNIDine HCL 0.1 MG TABLET PO PRN (07:30)
[2019-03-08] MEDS ORDERED: ONDANSETRON HCL 4 MG TABLET PO PRN (07:30)
[2019-03-08] MEDS ORDERED: ALBUTEROL SULFATE HFA 90 MCG/PUFF 8 GM INHALER IH PRN (07:30)
[2019-03-08] MEDS ORDERED: MAGNESIUM HYDROXIDE SUSPENSION 30 ML UDCUP PO PRN (07:30)
[2019-03-08] MEDS ORDERED: LOPERAMIDE HCL 2 MG CAPSULE PO PRN (07:30)
[2019-03-08] MEDS ORDERED: ACETAMINOPHEN 325 MG TABLET PO PRN (07:30)
[2019-03-08 07:33] LABS: BASOPHILS % (AUTO) 0.5 % (0.0-2.0); EOSINOPHILS % (AUTO) 3.1 % (1.0-6.0); HEMATOCRIT 41.1 % (41-53); HEMOGLOBIN 13.1 g/dL (13.5-17.5); LYMPHOCYTES # (AUTO) 2.5 K/uL (1.0-4.8); LYMPHOCYTES % (AUTO) 27.6 % (22.0-44.0); MEAN CORPUSCULAR HEMOGLOBIN 27.5 pg (26.0-34.0); MEAN CORPUSCULAR HGB CONC 31.9 G/dL (31.0-37.0); MEAN CORPUSCULAR VOLUME 86 fL (80-100); MONOCYTES # (AUTO) 0.9 K/uL (0.1-1.0); NEUTROPHILS # (AUTO) 5.4 K/uL (1.8-7.7); NEUTROPHILS % (AUTO) 58.8 % (40.0-70.0); PLATELET COUNT (AUTO) 283 K/uL (150-450); RED BLOOD CELL COUNT(AUTO) 4.77 MIL/uL (4.50-5.90); RED CELL DISTRIBUTION WIDTH 16.5 % (11.5-14.5)
[2019-03-08 07:52] LABS: HEMOGLOBIN A1C 6.3 % (4.5-6.2)
[2019-03-08 08:26] LABS: ALANINE AMINOTRANSFERASE 20 U/L (12-78); ALBUMIN 3.5 g/dL (3.4-5.0); ALKALINE PHOSPHATASE 60 U/L (46-116); ANION GAP 13 mmol/L (8-16); ASPARTATE AMINOTRANSFERASE 13 U/L (15-37); BILIRUBIN,TOTAL 0.2 mg/dL (0.1-1.0); CALCIUM, TOTAL 8.9 mg/dL (8.8-10.5); CARBON DIOXIDE 24 mmol/L (22-29); CHLORIDE 106 mmol/L (98-107); CHOL/HDL RATIO 5.7 (4.2-7.3); CHOLESTEROL 165 mg/dL (131-200); CREATININE 0.98 mg/dL (0.60-1.30); GLOMERULAR FILTR. RATE CALC > 60 mL/min (>60); GLUCOSE,RANDOM 101 mg/dL (70-110); HDL CHOLESTEROL 29 mg/dL (40-60); LDL CHOL (CALC.) 110 mg/dL (0-130); POTASSIUM 4.6 mmol/L (3.5-5.1); SODIUM SERUM 143 mmol/L (136-145); THYROID STIMULATING HORMONE 1.15 uIU/mL (0.36-3.74); TOTAL PROTEIN, SERUM 6.5 g/dL (6.4-8.2); TRIGLYCERIDES 132 mg/dL (15-150); UREA NITROGEN, BLOOD 19 mg/dL (7-18)
[2019-03-08] MEDS: IBUPROFEN 400 MG TABLET PO PRN (11:27)
[2019-03-08] MEDS: DIVALPROEX SODIUM 125 MG DR TABLET PO SCH ×2 (13:00→16:51)
[2019-03-08] MEDS: BusPIRone HCL 15 MG TABLET PO SCH ×2 (13:12→16:51)
[2019-03-08] MEDS: BuPROPion HCL XL 150 MG ER TABLET PO SCH (13:12)
[2019-03-08] MEDS ORDERED: LevETIRAcetam 250 MG TABLET PO SCH (17:00)
[2019-03-08] MEDS: RisperiDONE 1 MG TABLET PO SCH (20:33)
[2019-03-08] MEDS: DIVALPROEX SODIUM 250 MG DR TABLET PO SCH (20:33)
[2019-03-08] MEDS: TraZODone HCL 50 MG TABLET PO SCH (20:33)
[2019-03-08] MEDS: MIRTAZAPINE 15 MG TABLET PO SCH (20:33)
[2019-03-08] MEDS ORDERED: RisperiDONE 2 MG TABLET PO SCH (21:00)
[2019-03-09] MEDS: BusPIRone HCL 15 MG TABLET PO SCH ×3 (09:00→16:45)
[2019-03-09] MEDS: PHENYTOIN SODIUM 100 MG ER CAPSULE PO SCH ×2 (09:00→09:18)
[2019-03-09] MEDS: BuPROPion HCL XL 150 MG ER TABLET PO SCH (09:08)
[2019-03-09] MEDS: DIVALPROEX SODIUM 125 MG DR TABLET PO SCH ×3 (09:09→16:45)
[2019-03-09] MEDS: LORazepam 2 MG TABLET PO PRN ×2 (13:17→20:19)
[2019-03-09] MEDS: RisperiDONE 1 MG TABLET PO SCH (20:19)
[2019-03-09] MEDS: MIRTAZAPINE 15 MG TABLET PO SCH (20:19)
[2019-03-09] MEDS: TraZODone HCL 50 MG TABLET PO SCH (20:19)
[2019-03-09] MEDS: DIVALPROEX SODIUM 250 MG DR TABLET PO SCH (20:19)
[2019-03-10] MEDS: PHENYTOIN SODIUM 100 MG ER CAPSULE PO SCH (09:00)
[2019-03-10] MEDS: BusPIRone HCL 15 MG TABLET PO SCH ×2 (09:25→12:56)
[2019-03-10] MEDS: BuPROPion HCL XL 150 MG ER TABLET PO SCH (09:25)
[2019-03-10] MEDS: DIVALPROEX SODIUM 125 MG DR TABLET PO SCH ×3 (09:25→17:07)
[2019-03-10] MEDS: LACTULOSE 20 GM/30 ML SOLUTION UDCUP PO PRN (17:55)
[2019-03-10] MEDS: DIVALPROEX SODIUM 250 MG DR TABLET PO SCH (20:48)
[2019-03-10] MEDS: TraZODone HCL 50 MG TABLET PO SCH (20:48)
[2019-03-10] MEDS: RisperiDONE 1 MG TABLET PO SCH (20:48)
[2019-03-10] MEDS: MIRTAZAPINE 15 MG TABLET PO SCH (20:48)
[2019-03-10] MEDS: ZOLPIDEM TARTRATE 10 MG TABLET PO PRN (22:17)
[2019-03-11 08:08] VITALS: BP 134/78
[2019-03-11] MEDS: PHENYTOIN SODIUM 100 MG ER CAPSULE PO SCH (09:00)
[2019-03-11] MEDS: BusPIRone HCL 15 MG TABLET PO SCH ×2 (09:00→12:45)
[2019-03-11] MEDS: BuPROPion HCL XL 150 MG ER TABLET PO SCH (09:31)
[2019-03-11] MEDS: DIVALPROEX SODIUM 125 MG DR TABLET PO SCH ×3 (10:46→16:09)
[2019-03-11] MEDS: IBUPROFEN 400 MG TABLET PO PRN (12:45)
[2019-03-11] MEDS: LORazepam 2 MG TABLET PO PRN ×2 (16:08→20:15)
[2019-03-11 16:26] VITALS: BP 126/84
[2019-03-11] MEDS: RisperiDONE 1 MG TABLET PO SCH (20:14)
[2019-03-11] MEDS: TraZODone HCL 50 MG TABLET PO SCH (20:14)
[2019-03-11] MEDS: DIVALPROEX SODIUM 250 MG DR TABLET PO SCH (20:14)
[2019-03-11] MEDS: MIRTAZAPINE 15 MG TABLET PO SCH (20:15)
[2019-03-12] MEDS: BuPROPion HCL XL 150 MG ER TABLET PO SCH (08:40)
[2019-03-12] MEDS: DIVALPROEX SODIUM 125 MG DR TABLET PO SCH ×3 (08:40→16:50)
[2019-03-12] MEDS: BusPIRone HCL 15 MG TABLET PO SCH ×2 (08:40→12:48)
[2019-03-12] MEDS: PHENYTOIN SODIUM 100 MG ER CAPSULE PO SCH (08:45)
[2019-03-12 16:31] VITALS: BP 117/63
[2019-03-12] MEDS: LORazepam 2 MG TABLET PO PRN ×2 (16:51→20:57)
[2019-03-12] MEDS: DIVALPROEX SODIUM 250 MG DR TABLET PO SCH (20:13)
[2019-03-12] MEDS: MIRTAZAPINE 15 MG TABLET PO SCH (20:13)
[2019-03-12] MEDS: RisperiDONE 1 MG TABLET PO SCH (20:14)
[2019-03-12] MEDS: TraZODone HCL 50 MG TABLET PO SCH (20:14)
[2019-03-12] MEDS: ZOLPIDEM TARTRATE 10 MG TABLET PO PRN (20:14)
[2019-03-13] MEDS: BuPROPion HCL XL 150 MG ER TABLET PO SCH (08:48)
[2019-03-13] MEDS: BusPIRone HCL 15 MG TABLET PO SCH ×2 (08:48→12:50)
[2019-03-13] MEDS: DIVALPROEX SODIUM 125 MG DR TABLET PO SCH ×3 (08:48→16:49)
[2019-03-13] MEDS: PHENYTOIN SODIUM 100 MG ER CAPSULE PO SCH (08:56)
[2019-03-13] MEDS: TraZODone HCL 50 MG TABLET PO SCH (21:21)
[2019-03-13] MEDS: DIVALPROEX SODIUM 250 MG DR TABLET PO SCH (21:21)
[2019-03-13] MEDS: RisperiDONE 1 MG TABLET PO SCH (21:21)
[2019-03-13] MEDS: MIRTAZAPINE 15 MG TABLET PO SCH (21:21)
[2019-03-13] MEDS: LACTULOSE 20 GM/30 ML SOLUTION UDCUP PO PRN (21:22)
[2019-03-14 00:45] VITALS: BP 124/65
[2019-03-14] MEDS: ZOLPIDEM TARTRATE 10 MG TABLET PO PRN (00:52)
[2019-03-14] MEDS: LORazepam 2 MG TABLET PO PRN (00:52)
[2019-03-14] MEDS: PHENYTOIN SODIUM 100 MG ER CAPSULE PO SCH (09:00)
[2019-03-14] MEDS: DIVALPROEX SODIUM 125 MG DR TABLET PO SCH ×2 (09:43→13:27)
[2019-03-14] MEDS: BuPROPion HCL XL 150 MG ER TABLET PO SCH (09:44)
[2019-03-14] MEDS: BusPIRone HCL 15 MG TABLET PO SCH ×2 (09:44→13:26)
[2019-03-14] MEDS ORDERED: BUSP15 PO ×2 (13:23→13:35)
[2019-03-14] MEDS ORDERED: DIVA-76 PO (13:25)
[2019-03-14] MEDS ORDERED: RISP1 PO (13:30)
[2019-03-14] MEDS ORDERED: DIVA125T32 PO (13:32)
== END 2019-03-14 15:45 | disposition home or self-care (01) | DRG 750 ==
LOC: B3A 22:04
PROVIDERS: ADMIT Psychiatry & Neurology Child & Adolescent Psychiatry; ATTEND Psychiatry & Neurology Child & Adolescent Psychiatry
DX: F25.1 Schizoaffective disorder, depressive type (principal); R45.850 Homicidal ideations; G40.909 Epilepsy, unspecified, not intractable, without status epilepticus; B19.20 Unspecified viral hepatitis C without hepatic coma; I10 Essential (primary) hypertension; J45.909 Unspecified asthma, uncomplicated; K21.9 Gastro-esophageal reflux disease without esophagitis; K59.00 Constipation, unspecified; Z59.0 Homelessness; Z79.899 Other long term (current) drug therapy; Z85.72 Personal history of non-Hodgkin lymphomas; Z88.0 Allergy status to penicillin; Z91.018 Allergy to other foods
CPT/HCPCS: 83036; 84439; 84443

== ENCOUNTER 2019-03-21 14:22 | Inpatient (IN) | payer MEDICAID ==
[~2019-03-21] VITALS: Ht 180.3 cm; Wt 107.0 kg
[~2019-03-21 14:22] MED LIST changes: +BUPR-93 PO; +DIVA-76 PO; +DIVA125T32 PO; -DIVA250T45 PO; -LEVE500T53 PO; +RISP1 PO; +TRAZ-252 PO
[2019-03-21 14:49] VITALS: BP 135/89
[2019-03-21] MEDS ORDERED: GuaiFENesin/D-METHORPHAN [SUGAR-FREE] 200-20MG/10 ML SYRUP UDCUP PO PRN (15:15)
[2019-03-21] MEDS ORDERED: TUBERCULIN, PURIFIED PROTEIN DERIVATIVE 5 TU/0.1 ML SYRINGE ID ONE (15:15)
[2019-03-21] MEDS ORDERED: MAGNESIUM HYDROXIDE SUSPENSION 30 ML UDCUP PO PRN (15:15)
[2019-03-21] MEDS ORDERED: PROMETHAZINE HCL 25 MG TABLET PO PRN (15:15)
[2019-03-21] MEDS ORDERED: ACETAMINOPHEN 325 MG TABLET PO PRN ×2 (15:15→16:30)
[2019-03-21] MEDS ORDERED: QUEtiapine FUMARATE 100 MG TABLET PO PRN (15:15)
[2019-03-21] MEDS ORDERED: MAG HYDROX/AL HYDROX/SIMETH ES 30 ML SUSPENSION UDCUP PO PRN (15:15)
[2019-03-21] MEDS ORDERED: HydrOXYzine PAMOATE 50 MG CAPSULE PO PRN (15:15)
[2019-03-21] MEDS ORDERED: LOPERAMIDE HCL 2 MG CAPSULE PO PRN (15:15)
[2019-03-21 16:15] VITALS: BP 143/90
[2019-03-21] MEDS: LevETIRAcetam 500 MG TABLET PO SCH (17:00)
[2019-03-21] MEDS: DIVALPROEX SODIUM 500 MG ER TABLET PO SCH (17:01)
[2019-03-21] MEDS: BusPIRone HCL 10 MG TABLET PO SCH (17:01)
[2019-03-21] MEDS: THIAMINE HCL 100 MG TABLET PO SCH (17:01)
[2019-03-21] MEDS: LORazepam 2 MG TABLET PO PRN (17:02)
[2019-03-21] MEDS: LACTULOSE 20 GM/30 ML SOLUTION UDCUP PO SCH (17:18)
[2019-03-21] MEDS: ZOLPIDEM TARTRATE 10 MG TABLET PO PRN (21:00)
[2019-03-21] MEDS: QUEtiapine FUMARATE 100 MG TABLET PO SCH (21:00)
[2019-03-21] MEDS: NALTREXONE HCL 50 MG TABLET PO SCH (21:00)
[2019-03-21] MEDS ORDERED: MIRTAZAPINE 15 MG TABLET PO SCH (21:00)
[2019-03-22] MEDS: LACTULOSE 20 GM/30 ML SOLUTION UDCUP PO SCH ×2 (08:35→16:12)
[2019-03-22] MEDS: LevETIRAcetam 500 MG TABLET PO SCH (08:35)
[2019-03-22] MEDS: FOLIC ACID 1 MG TABLET PO SCH (08:36)
[2019-03-22] MEDS: BusPIRone HCL 10 MG TABLET PO SCH ×3 (08:36→16:13)
[2019-03-22] MEDS: NICOTINE 14 MG/24 HOUR PATCH TD SCH (08:36)
[2019-03-22] MEDS: MULTIVITAMINS WITH MINERALS, THERAPEUTIC TABLET PO SCH (08:36)
[2019-03-22] MEDS: DIVALPROEX SODIUM 500 MG ER TABLET PO SCH ×3 (08:36→16:13)
[2019-03-22] MEDS: THIAMINE HCL 100 MG TABLET PO SCH ×2 (08:36→16:13)
[2019-03-22] MEDS ORDERED: LevETIRAcetam 250 MG TABLET PO SCH (09:00)
[2019-03-22] MEDS: PREGABALIN 25 MG CAPSULE PO SCH (16:13)
[2019-03-22 16:14] VITALS: BP 121/90
[2019-03-22] MEDS: NALTREXONE HCL 50 MG TABLET PO SCH ×2 (20:18→21:00)
[2019-03-22] MEDS: QUEtiapine FUMARATE 100 MG TABLET PO SCH (20:19)
[2019-03-23 07:01] VITALS: BP 128/88
[2019-03-23] MEDS: FOLIC ACID 1 MG TABLET PO SCH (08:52)
[2019-03-23] MEDS: LACTULOSE 20 GM/30 ML SOLUTION UDCUP PO SCH ×2 (08:52→16:16)
[2019-03-23] MEDS: MULTIVITAMINS WITH MINERALS, THERAPEUTIC TABLET PO SCH (08:52)
[2019-03-23] MEDS: THIAMINE HCL 100 MG TABLET PO SCH ×2 (08:52→16:16)
[2019-03-23] MEDS: PREGABALIN 25 MG CAPSULE PO SCH ×3 (08:52→16:16)
[2019-03-23] MEDS: BusPIRone HCL 10 MG TABLET PO SCH ×2 (08:52→12:35)
[2019-03-23] MEDS: NICOTINE 14 MG/24 HOUR PATCH TD SCH (09:00)
[2019-03-23] MEDS: DULoxetine HCL 20 MG CAPSULE PO SCH (09:00)
[2019-03-23] MEDS: DIVALPROEX SODIUM 500 MG ER TABLET PO SCH ×3 (09:00→20:34)
[2019-03-23 16:00] VITALS: BP 112/77
[2019-03-23] MEDS: LORazepam 2 MG TABLET PO PRN (16:17)
[2019-03-23] MEDS: MIRTAZAPINE 15 MG TABLET PO SCH (20:34)
[2019-03-23] MEDS: ZOLPIDEM TARTRATE 10 MG TABLET PO PRN (20:34)
[2019-03-23] MEDS: NALTREXONE HCL 50 MG TABLET PO SCH (20:34)
[2019-03-23] MEDS: QUEtiapine FUMARATE 100 MG TABLET PO SCH (20:34)
[2019-03-23] MEDS ORDERED: BusPIRone HCL 15 MG TABLET PO SCH (21:00)
[2019-03-24] MEDS: FOLIC ACID 1 MG TABLET PO SCH (08:45)
[2019-03-24] MEDS: PREGABALIN 25 MG CAPSULE PO SCH ×3 (08:45→16:40)
[2019-03-24] MEDS: DULoxetine HCL 20 MG CAPSULE PO SCH (08:45)
[2019-03-24] MEDS: MULTIVITAMINS WITH MINERALS, THERAPEUTIC TABLET PO SCH (08:45)
[2019-03-24] MEDS: THIAMINE HCL 100 MG TABLET PO SCH ×2 (08:45→16:40)
[2019-03-24] MEDS: LACTULOSE 20 GM/30 ML SOLUTION UDCUP PO SCH ×2 (08:45→16:40)
[2019-03-24] MEDS: NICOTINE 14 MG/24 HOUR PATCH TD SCH (08:53)
[2019-03-24] MEDS: LORazepam 2 MG TABLET PO PRN (14:50)
[2019-03-24 16:09] VITALS: BP 128/74
[2019-03-24] MEDS: BusPIRone HCL 10 MG TABLET PO SCH (16:40)
[2019-03-24] MEDS: ZOLPIDEM TARTRATE 10 MG TABLET PO PRN (20:48)
[2019-03-24] MEDS: QUEtiapine FUMARATE 100 MG TABLET PO SCH (20:48)
[2019-03-24] MEDS: DIVALPROEX SODIUM 500 MG ER TABLET PO SCH (20:48)
[2019-03-24] MEDS: MIRTAZAPINE 15 MG TABLET PO SCH (20:48)
[2019-03-24] MEDS: NALTREXONE HCL 50 MG TABLET PO SCH (20:49)
[2019-03-25] MEDS: THIAMINE HCL 100 MG TABLET PO SCH ×2 (08:33→17:14)
[2019-03-25] MEDS: DULoxetine HCL 20 MG CAPSULE PO SCH (08:33)
[2019-03-25] MEDS: PREGABALIN 25 MG CAPSULE PO SCH ×3 (08:33→17:14)
[2019-03-25] MEDS: FOLIC ACID 1 MG TABLET PO SCH (08:33)
[2019-03-25] MEDS: BusPIRone HCL 10 MG TABLET PO SCH ×3 (08:33→17:14)
[2019-03-25] MEDS: MULTIVITAMINS WITH MINERALS, THERAPEUTIC TABLET PO SCH (08:33)
[2019-03-25] MEDS: LACTULOSE 20 GM/30 ML SOLUTION UDCUP PO SCH ×2 (08:34→17:14)
[2019-03-25 13:50] VITALS: BP 132/78
[2019-03-25] MEDS: IBUPROFEN 600 MG TABLET PO PRN (13:53)
[2019-03-25 14:53] VITALS: BP 128/75
[2019-03-25 16:21] VITALS: BP 132/93
[2019-03-25] MEDS ORDERED: BusPIRone HCL 5 MG TABLET PO PRN (20:15)
[2019-03-25] MEDS: ZOLPIDEM TARTRATE 10 MG TABLET PO PRN (20:57)
[2019-03-25] MEDS: QUEtiapine FUMARATE 100 MG TABLET PO SCH (20:57)
[2019-03-25] MEDS: MIRTAZAPINE 15 MG TABLET PO SCH (20:57)
[2019-03-25] MEDS: DIVALPROEX SODIUM 500 MG ER TABLET PO SCH (20:57)
[2019-03-25] MEDS: NALTREXONE HCL 50 MG TABLET PO SCH (20:58)
[2019-03-26 07:58] LABS: BASOPHILS % (AUTO) 0.5 % (0.0-2.0); EOSINOPHILS % (AUTO) 3.4 % (1.0-6.0); HEMATOCRIT 40.3 % (41-53); HEMOGLOBIN 13.1 g/dL (13.5-17.5); LYMPHOCYTES # (AUTO) 3.3 K/uL (1.0-4.8); LYMPHOCYTES % (AUTO) 36.1 % (22.0-44.0); MEAN CORPUSCULAR HEMOGLOBIN 27.5 pg (26.0-34.0); MEAN CORPUSCULAR HGB CONC 32.4 G/dL (31.0-37.0); MEAN CORPUSCULAR VOLUME 85 fL (80-100); MONOCYTES # (AUTO) 0.8 K/uL (0.1-1.0); MONOCYTES % (AUTO) 9.1 % (2.0-9.0); NEUTROPHILS # (AUTO) 4.6 K/uL (1.8-7.7); NEUTROPHILS % (AUTO) 50.9 % (40.0-70.0); PLATELET COUNT (AUTO) 350 K/uL (150-450); RED BLOOD CELL COUNT(AUTO) 4.75 MIL/uL (4.50-5.90); RED CELL DISTRIBUTION WIDTH 16.3 % (11.5-14.5)
[2019-03-26 08:15] LABS: HEMOGLOBIN A1C 5.7 % (4.5-6.2)
[2019-03-26 08:28] LABS: ALANINE AMINOTRANSFERASE 12 U/L (12-78); ALBUMIN 3.2 g/dL (3.4-5.0); ALKALINE PHOSPHATASE 51 U/L (46-116); ANION GAP 6 mmol/L (8-16); ASPARTATE AMINOTRANSFERASE 8 U/L (15-37); BILIRUBIN,TOTAL 0.2 mg/dL (0.1-1.0); CALCIUM, TOTAL 8.8 mg/dL (8.8-10.5); CARBON DIOXIDE 28 mmol/L (22-29); CHLORIDE 106 mmol/L (98-107); CHOL/HDL RATIO 5.3 (4.2-7.3); CHOLESTEROL 174 mg/dL (131-200); GLOMERULAR FILTR. RATE CALC > 60 mL/min (>60); GLUCOSE,RANDOM 77 mg/dL (70-110); HDL CHOLESTEROL 33 mg/dL (40-60); POTASSIUM 4.1 mmol/L (3.5-5.1); SODIUM SERUM 140 mmol/L (136-145); TOTAL PROTEIN, SERUM 6.5 g/dL (6.4-8.2); TRIGLYCERIDES 145 mg/dL (15-150); UREA NITROGEN, BLOOD 14 mg/dL (7-18)
[2019-03-26 08:29] LABS: FREE T4 (FREE THYROXINE) 0.79 ng/dL (0.76-1.46); LDL CHOL (CALC.) 112 mg/dL (0-130); THYROID STIMULATING HORMONE 1.54 uIU/mL (0.36-3.74)
[2019-03-26] MEDS: MULTIVITAMINS WITH MINERALS, THERAPEUTIC TABLET PO SCH (08:34)
[2019-03-26] MEDS: THIAMINE HCL 100 MG TABLET PO SCH ×2 (08:34→16:39)
[2019-03-26] MEDS: BusPIRone HCL 10 MG TABLET PO SCH ×3 (08:34→16:39)
[2019-03-26] MEDS: FOLIC ACID 1 MG TABLET PO SCH (08:34)
[2019-03-26] MEDS: PREGABALIN 25 MG CAPSULE PO SCH ×3 (08:34→16:39)
[2019-03-26] MEDS: DULoxetine HCL 20 MG CAPSULE PO SCH (08:34)
[2019-03-26] MEDS: LACTULOSE 20 GM/30 ML SOLUTION UDCUP PO SCH ×2 (08:35→16:39)
[2019-03-26 16:11] VITALS: BP 122/83
[2019-03-26] MEDS: ZOLPIDEM TARTRATE 10 MG TABLET PO PRN (20:58)
[2019-03-26] MEDS: DIVALPROEX SODIUM 500 MG ER TABLET PO SCH (20:58)
[2019-03-26] MEDS: MIRTAZAPINE 15 MG TABLET PO SCH (20:58)
[2019-03-26] MEDS: QUEtiapine FUMARATE 100 MG TABLET PO SCH (20:58)
[2019-03-26] MEDS: NALTREXONE HCL 50 MG TABLET PO SCH (20:58)
[2019-03-27 08:07] VITALS: BP 127/92
[2019-03-27] MEDS: BusPIRone HCL 10 MG TABLET PO SCH ×3 (09:15→16:28)
[2019-03-27] MEDS: DULoxetine HCL 20 MG CAPSULE PO SCH (09:15)
[2019-03-27] MEDS: PREGABALIN 25 MG CAPSULE PO SCH ×3 (09:16→16:28)
[2019-03-27] MEDS: MULTIVITAMINS WITH MINERALS, THERAPEUTIC TABLET PO SCH (09:16)
[2019-03-27] MEDS: FOLIC ACID 1 MG TABLET PO SCH (09:17)
[2019-03-27] MEDS: THIAMINE HCL 100 MG TABLET PO SCH ×2 (09:17→16:28)
[2019-03-27] MEDS: LACTULOSE 20 GM/30 ML SOLUTION UDCUP PO SCH ×2 (09:54→16:28)
[2019-03-27] MEDS: IBUPROFEN 600 MG TABLET PO PRN (16:28)
[2019-03-27 16:49] VITALS: BP 139/92
[2019-03-27] MEDS: DIVALPROEX SODIUM 500 MG ER TABLET PO SCH (21:01)
[2019-03-27] MEDS: MIRTAZAPINE 15 MG TABLET PO SCH (21:02)
[2019-03-27] MEDS: NALTREXONE HCL 50 MG TABLET PO SCH (21:02)
[2019-03-27] MEDS: QUEtiapine FUMARATE 100 MG TABLET PO SCH (21:02)
[2019-03-28 08:00] VITALS: BP 106/64
[2019-03-28] MEDS: BusPIRone HCL 10 MG TABLET PO SCH ×3 (08:34→16:23)
[2019-03-28] MEDS: MULTIVITAMINS WITH MINERALS, THERAPEUTIC TABLET PO SCH (08:35)
[2019-03-28] MEDS: PREGABALIN 25 MG CAPSULE PO SCH ×3 (08:36→16:23)
[2019-03-28] MEDS: THIAMINE HCL 100 MG TABLET PO SCH ×2 (08:37→16:23)
[2019-03-28] MEDS: DULoxetine HCL 20 MG CAPSULE PO SCH (08:37)
[2019-03-28] MEDS: FOLIC ACID 1 MG TABLET PO SCH (08:37)
[2019-03-28] MEDS: LACTULOSE 20 GM/30 ML SOLUTION UDCUP PO SCH ×2 (09:00→16:24)
[2019-03-28 16:00] VITALS: BP 121/78
[2019-03-28] MEDS: NALTREXONE HCL 50 MG TABLET PO SCH (21:00)
[2019-03-28] MEDS: DIVALPROEX SODIUM 500 MG ER TABLET PO SCH (21:12)
[2019-03-28] MEDS: MIRTAZAPINE 15 MG TABLET PO SCH (21:12)
[2019-03-28] MEDS: QUEtiapine FUMARATE 100 MG TABLET PO SCH (21:12)
[2019-03-28] MEDS: ZOLPIDEM TARTRATE 10 MG TABLET PO PRN (21:23)
[2019-03-29 03:16] VITALS: BP 119/72
[2019-03-29 08:00] VITALS: BP 121/65
[2019-03-29] MEDS: FOLIC ACID 1 MG TABLET PO SCH (08:32)
[2019-03-29] MEDS: BusPIRone HCL 10 MG TABLET PO SCH ×3 (08:32→16:07)
[2019-03-29] MEDS: THIAMINE HCL 100 MG TABLET PO SCH ×2 (08:32→16:07)
[2019-03-29] MEDS: DULoxetine HCL 20 MG CAPSULE PO SCH (08:32)
[2019-03-29] MEDS: MULTIVITAMINS WITH MINERALS, THERAPEUTIC TABLET PO SCH (08:32)
[2019-03-29] MEDS: PREGABALIN 25 MG CAPSULE PO SCH ×2 (08:33→12:18)
[2019-03-29] MEDS: LACTULOSE 20 GM/30 ML SOLUTION UDCUP PO SCH ×2 (08:33→16:07)
[2019-03-29 16:11] VITALS: BP 117/65
[2019-03-29] MEDS: PREGABALIN 50 MG CAPSULE PO SCH (16:14)
[2019-03-29] MEDS: NALTREXONE HCL 50 MG TABLET PO SCH (21:00)
[2019-03-29] MEDS: QUEtiapine FUMARATE 100 MG TABLET PO SCH (21:01)
[2019-03-29] MEDS: DIVALPROEX SODIUM 500 MG ER TABLET PO SCH (21:01)
[2019-03-29] MEDS: MIRTAZAPINE 15 MG TABLET PO SCH (21:01)
[2019-03-30 05:11] VITALS: BP 114/66
[2019-03-30 08:00] VITALS: BP 116/73
[2019-03-30] MEDS: MULTIVITAMINS WITH MINERALS, THERAPEUTIC TABLET PO SCH (08:44)
[2019-03-30] MEDS: BusPIRone HCL 10 MG TABLET PO SCH ×3 (08:44→16:41)
[2019-03-30] MEDS: FOLIC ACID 1 MG TABLET PO SCH (08:45)
[2019-03-30] MEDS: PREGABALIN 50 MG CAPSULE PO SCH ×3 (08:45→16:41)
[2019-03-30] MEDS: DULoxetine HCL 20 MG CAPSULE PO SCH (08:50)
[2019-03-30] MEDS: LACTULOSE 20 GM/30 ML SOLUTION UDCUP PO SCH ×2 (09:00→16:41)
[2019-03-30] MEDS: THIAMINE HCL 100 MG TABLET PO SCH ×2 (09:38→17:20)
[2019-03-30 17:30] VITALS: BP 140/97
[2019-03-30] MEDS: NALTREXONE HCL 50 MG TABLET PO SCH (21:00)
[2019-03-30] MEDS: MIRTAZAPINE 15 MG TABLET PO SCH (21:03)
[2019-03-30] MEDS: DIVALPROEX SODIUM 500 MG ER TABLET PO SCH (21:03)
[2019-03-30] MEDS: QUEtiapine FUMARATE 100 MG TABLET PO SCH (21:03)
[2019-03-31 08:15] VITALS: BP 116/79
[2019-03-31] MEDS: LACTULOSE 20 GM/30 ML SOLUTION UDCUP PO SCH ×2 (09:00→16:51)
[2019-03-31] MEDS: THIAMINE HCL 100 MG TABLET PO SCH (09:40)
[2019-03-31] MEDS: FOLIC ACID 1 MG TABLET PO SCH (09:41)
[2019-03-31] MEDS: PREGABALIN 50 MG CAPSULE PO SCH (09:41)
[2019-03-31] MEDS: MULTIVITAMINS WITH MINERALS, THERAPEUTIC TABLET PO SCH (09:42)
[2019-03-31] MEDS: DULoxetine HCL 30 MG CAPSULE PO SCH (09:42)
[2019-03-31] MEDS: BusPIRone HCL 10 MG TABLET PO SCH ×3 (09:42→16:51)
[2019-03-31] MEDS: PREGABALIN 75 MG CAPSULE PO SCH ×2 (15:16→16:51)
[2019-03-31] MEDS: IBUPROFEN 600 MG TABLET PO PRN (16:51)
[2019-03-31 17:54] VITALS: BP 110/87
[2019-03-31] MEDS: QUEtiapine FUMARATE 100 MG TABLET PO SCH (20:45)
[2019-03-31] MEDS: DIVALPROEX SODIUM 500 MG ER TABLET PO SCH (20:45)
[2019-03-31] MEDS: NALTREXONE HCL 50 MG TABLET PO SCH (20:46)
[2019-03-31] MEDS: MIRTAZAPINE 15 MG TABLET PO SCH (20:46)
[2019-03-31] MEDS: ZOLPIDEM TARTRATE 10 MG TABLET PO PRN (20:46)
[2019-04-01 08:00] VITALS: BP 135/67
[2019-04-01] MEDS: LACTULOSE 20 GM/30 ML SOLUTION UDCUP PO SCH ×2 (09:00→16:59)
[2019-04-01] MEDS: MULTIVITAMINS WITH MINERALS, THERAPEUTIC TABLET PO SCH (09:39)
[2019-04-01] MEDS: DULoxetine HCL 30 MG CAPSULE PO SCH (09:39)
[2019-04-01] MEDS: PREGABALIN 75 MG CAPSULE PO SCH ×3 (09:39→16:59)
[2019-04-01] MEDS: BusPIRone HCL 10 MG TABLET PO SCH ×3 (09:40→16:59)
[2019-04-01] MEDS ORDERED: BUSP10TA23 PO (14:07)
[2019-04-01] MEDS ORDERED: DULO30CA2 PO (14:07)
[2019-04-01] MEDS ORDERED: QUET100T33 PO (14:07)
[2019-04-01] MEDS ORDERED: DIVA500T52 PO (14:07)
[2019-04-01] MEDS ORDERED: NALT50TA PO (14:07)
[2019-04-01] MEDS ORDERED: MIRT15 PO (14:07)
[2019-04-01] MEDS: LORazepam 2 MG TABLET PO PRN (14:20)
[2019-04-01] MEDS ORDERED: PREG75 PO (14:32)
[2019-04-01 16:29] VITALS: BP 134/89
== END 2019-04-01 18:01 | disposition home or self-care (01) | DRG 750 ==
LOC: B3A 15:39
PROVIDERS: ADMIT Psychiatry & Neurology Psychiatry; ATTEND Psychiatry & Neurology Psychiatry
DX: F25.9 Schizoaffective disorder, unspecified (principal); C85.90 Non-Hodgkin lymphoma, unspecified, unspecified site; R45.851 Suicidal ideations; F31.81 Bipolar II disorder; G40.909 Epilepsy, unspecified, not intractable, without status epilepticus; K75.9 Inflammatory liver disease, unspecified; F41.9 Anxiety disorder, unspecified; D64.9 Anemia, unspecified; F15.90 Other stimulant use, unspecified, uncomplicated; F17.210 Nicotine dependence, cigarettes, uncomplicated; I10 Essential (primary) hypertension; J45.909 Unspecified asthma, uncomplicated; R73.03 Prediabetes; Z59.0 Homelessness; Z88.0 Allergy status to penicillin; Z91.018 Allergy to other foods; Z79.899 Other long term (current) drug therapy; Z81.8 Family history of other mental and behavioral disorders; Z82.3 Family history of stroke; Z91.19 Patient's noncompliance with other medical treatment and regimen
CPT/HCPCS: 83036; 84439; 84443; 87081

== ENCOUNTER 2019-04-26 18:59 | Inpatient (IN) | payer MEDICAID ==
[~2019-04-26] VITALS: Ht 180.3 cm; Wt 109.1 kg
[~2019-04-26 18:59] MED LIST changes: -BUPR-93 PO; +BUSP10TA23 PO; -BUSP15 PO; -DIVA-76 PO; -DIVA125T32 PO; +DIVA500T52 PO; +DULO30CA2 PO; +NALT50TA PO; +PREG75 PO; +QUET100T33 PO; -RISP1 PO; -TRAZ-252 PO
[2019-04-26 21:13] VITALS: BP 150/100
[2019-04-26] MEDS ORDERED: LORazepam 2 MG TABLET PO PRN (21:30)
[2019-04-26] MEDS ORDERED: OLANZapine 5 MG RAPDIS TABLET PO PRN (21:30)
[2019-04-26] MEDS ORDERED: ZOLPIDEM TARTRATE 10 MG TABLET PO PRN (21:30)
[2019-04-26 21:42] VITALS: BP 152/98
[2019-04-26] MEDS ORDERED: PNEUMOCOCCAL VACCINE POLYVALENT 0.5 ML VIAL [PPSV23] IM ONE (23:15)
[2019-04-26] MEDS ORDERED: INFLUENZA VIRUS VACCINE QVS 2019-20 (3YR+)/PF 60 MCG/0.5 ML SYRINGE IM ONE (23:15)
[2019-04-27 02:33] VITALS: BP 141/92
[2019-04-27 08:01] LABS: BASOPHILS % (AUTO) 0.6 % (0.0-2.0); EOSINOPHILS % (AUTO) 3.9 % (1.0-6.0); HEMATOCRIT 39.2 % (41-53); HEMOGLOBIN 12.7 g/dL (13.5-17.5); LYMPHOCYTES # (AUTO) 2.4 K/uL (1.0-4.8); LYMPHOCYTES % (AUTO) 29.9 % (22.0-44.0); MEAN CORPUSCULAR HEMOGLOBIN 27.8 pg (26.0-34.0); MEAN CORPUSCULAR HGB CONC 32.4 G/dL (31.0-37.0); MEAN CORPUSCULAR VOLUME 86 fL (80-100); NEUTROPHILS # (AUTO) 4.2 K/uL (1.8-7.7); NEUTROPHILS % (AUTO) 52.6 % (40.0-70.0); PLATELET COUNT (AUTO) 284 K/uL (150-450); RED BLOOD CELL COUNT(AUTO) 4.58 MIL/uL (4.50-5.90); RED CELL DISTRIBUTION WIDTH 17.6 % (11.5-14.5)
[2019-04-27 08:02] VITALS: BP 131/87
[2019-04-27 08:18] LABS: ALANINE AMINOTRANSFERASE 20 U/L (12-78); ALBUMIN 3.2 g/dL (3.4-5.0); ALKALINE PHOSPHATASE 46 U/L (46-116); ANION GAP 5 mmol/L (8-16); ASPARTATE AMINOTRANSFERASE 10 U/L (15-37); BILIRUBIN,TOTAL 0.3 mg/dL (0.1-1.0); CALCIUM, TOTAL 8.9 mg/dL (8.8-10.5); CARBON DIOXIDE 29 mmol/L (22-29); CHLORIDE 111 mmol/L (98-107); CHOL/HDL RATIO 5.2 (4.2-7.3); CHOLESTEROL 160 mg/dL (131-200); CREATININE 1.01 mg/dL (0.60-1.30); GLOMERULAR FILTR. RATE CALC > 60 mL/min (>60); GLUCOSE,RANDOM 99 mg/dL (70-110); HDL CHOLESTEROL 31 mg/dL (40-60); HEMOGLOBIN A1C 6.2 % (4.5-6.2); LDL CHOL (CALC.) 112 mg/dL (0-130); POTASSIUM 3.9 mmol/L (3.5-5.1); SODIUM SERUM 145 mmol/L (136-145); TOTAL PROTEIN, SERUM 6.7 g/dL (6.4-8.2); TRIGLYCERIDES 86 mg/dL (15-150); UREA NITROGEN, BLOOD 23 mg/dL (7-18)
[2019-04-27] MEDS ORDERED: DIVALPROEX SODIUM 500 MG DR TABLET PO SCH (09:00)
[2019-04-27] MEDS: NICOTINE 14 MG/24 HOUR PATCH TD SCH (09:00)
[2019-04-27] MEDS ORDERED: MAG HYDROX/AL HYDROX/SIMETH ES 30 ML SUSPENSION UDCUP PO PRN (12:30)
[2019-04-27] MEDS ORDERED: MAGNESIUM HYDROXIDE SUSPENSION 30 ML UDCUP PO PRN (12:30)
[2019-04-27] MEDS ORDERED: LOPERAMIDE HCL 2 MG CAPSULE PO PRN (12:30)
[2019-04-27] MEDS ORDERED: QUEtiapine FUMARATE 25 MG TABLET PO PRN (12:30)
[2019-04-27] MEDS ORDERED: PROMETHAZINE HCL 25 MG TABLET PO PRN (12:30)
[2019-04-27] MEDS ORDERED: GuaiFENesin/D-METHORPHAN [SUGAR-FREE] 200-20MG/10 ML SYRUP UDCUP PO PRN (12:30)
[2019-04-27] MEDS ORDERED: ACETAMINOPHEN 325 MG TABLET PO PRN (12:30)
[2019-04-27 16:00] VITALS: BP 123/67
[2019-04-27] MEDS: PREGABALIN 25 MG CAPSULE PO SCH (16:16)
[2019-04-27] MEDS: HydrOXYzine PAMOATE 50 MG CAPSULE PO PRN (16:16)
[2019-04-27] MEDS: THIAMINE HCL 100 MG TABLET PO SCH (16:16)
[2019-04-27] MEDS: BusPIRone HCL 10 MG TABLET PO SCH (16:16)
[2019-04-27] MEDS: DIVALPROEX SODIUM 500 MG ER TABLET PO SCH (20:46)
[2019-04-27] MEDS: QUEtiapine FUMARATE 100 MG TABLET PO SCH (20:46)
[2019-04-27] MEDS ORDERED: DULoxetine HCL 30 MG CAPSULE PO SCH (21:00)
[2019-04-28 06:39] VITALS: BP 109/61
[2019-04-28] MEDS: BusPIRone HCL 10 MG TABLET PO SCH ×3 (09:00→16:31)
[2019-04-28] MEDS: FOLIC ACID 1 MG TABLET PO SCH (09:00)
[2019-04-28] MEDS: MULTIVITAMINS WITH MINERALS, THERAPEUTIC TABLET PO SCH (09:00)
[2019-04-28] MEDS: PREGABALIN 25 MG CAPSULE PO SCH ×3 (09:00→16:31)
[2019-04-28] MEDS: NICOTINE 14 MG/24 HOUR PATCH TD SCH (09:00)
[2019-04-28] MEDS: THIAMINE HCL 100 MG TABLET PO SCH ×2 (09:01→16:31)
[2019-04-28] MEDS: NALTREXONE HCL 50 MG TABLET PO SCH (09:01)
[2019-04-28] MEDS ORDERED: ALBUTEROL SULFATE HFA 90 MCG/PUFF 8 GM INHALER IH PRN (11:45)
[2019-04-28 16:04] VITALS: BP 109/68
[2019-04-28] MEDS: HydrOXYzine PAMOATE 50 MG CAPSULE PO PRN (16:32)
[2019-04-28] MEDS: DIVALPROEX SODIUM 500 MG ER TABLET PO SCH (20:19)
[2019-04-28] MEDS: QUEtiapine FUMARATE 100 MG TABLET PO SCH (20:19)
[2019-04-28] MEDS: DULoxetine HCL 20 MG CAPSULE PO SCH (21:02)
[2019-04-29 06:06] VITALS: BP 113/74
[2019-04-29] MEDS: FOLIC ACID 1 MG TABLET PO SCH (08:07)
[2019-04-29] MEDS: PREGABALIN 25 MG CAPSULE PO SCH (08:07)
[2019-04-29] MEDS: MULTIVITAMINS WITH MINERALS, THERAPEUTIC TABLET PO SCH (08:07)
[2019-04-29] MEDS: BusPIRone HCL 10 MG TABLET PO SCH ×3 (08:07→16:04)
[2019-04-29] MEDS: NALTREXONE HCL 50 MG TABLET PO SCH (08:07)
[2019-04-29] MEDS: THIAMINE HCL 100 MG TABLET PO SCH ×2 (08:07→16:04)
[2019-04-29] MEDS: NICOTINE 14 MG/24 HOUR PATCH TD SCH (08:33)
[2019-04-29 16:02] VITALS: BP 111/69
[2019-04-29] MEDS: PREGABALIN 75 MG CAPSULE PO SCH (16:05)
[2019-04-29] MEDS: DIVALPROEX SODIUM 500 MG ER TABLET PO SCH (19:56)
[2019-04-29] MEDS: DULoxetine HCL 20 MG CAPSULE PO SCH (19:57)
[2019-04-29] MEDS: QUEtiapine FUMARATE 100 MG TABLET PO SCH (19:57)
[2019-04-30] MEDS ORDERED: BUSP15 PO (08:15)
[2019-04-30] MEDS ORDERED: DULO20CA30 PO (08:17)
[2019-04-30] MEDS: BusPIRone HCL 10 MG TABLET PO SCH ×2 (08:58→12:29)
[2019-04-30] MEDS: FOLIC ACID 1 MG TABLET PO SCH (08:58)
[2019-04-30] MEDS: NALTREXONE HCL 50 MG TABLET PO SCH (08:58)
[2019-04-30] MEDS: PREGABALIN 75 MG CAPSULE PO SCH ×2 (08:58→12:29)
[2019-04-30] MEDS: THIAMINE HCL 100 MG TABLET PO SCH (08:58)
[2019-04-30] MEDS: MULTIVITAMINS WITH MINERALS, THERAPEUTIC TABLET PO SCH (08:59)
[2019-04-30] MEDS: NICOTINE 14 MG/24 HOUR PATCH TD SCH (08:59)
== END 2019-04-30 13:00 | disposition home or self-care (01) | DRG 750 ==
LOC: B3A 21:24
PROVIDERS: ADMIT Psychiatry & Neurology Psychiatry; ATTEND Psychiatry & Neurology Psychiatry
DX: F25.9 Schizoaffective disorder, unspecified (principal); Z59.0 Homelessness; D64.9 Anemia, unspecified; F15.10 Other stimulant abuse, uncomplicated; G89.29 Other chronic pain; I10 Essential (primary) hypertension; J45.909 Unspecified asthma, uncomplicated; R73.03 Prediabetes; Z82.3 Family history of stroke; Z91.14 Patient's other noncompliance with medication regimen; Z79.899 Other long term (current) drug therapy
CPT/HCPCS: 83036; 86592; 87081

== ENCOUNTER 2019-09-04 08:27 | Inpatient (IN) | payer MEDICAID ==
[~2019-09-04] VITALS: Ht 177.8 cm; Wt 106.1 kg
[~2019-09-04 08:27] MED LIST changes: -BUSP10TA23 PO; +BUSP15 PO; +DULO20CA30 PO; -DULO30CA2 PO; -MIRT15 PO
[2019-09-04] MEDS ORDERED: ZOLPIDEM TARTRATE 10 MG TABLET PO PRN (13:30)
[2019-09-04] MEDS ORDERED: OLANZapine 5 MG RAPDIS TABLET PO PRN (13:30)
[2019-09-04 14:34] VITALS: BP 133/88
[2019-09-04] MEDS ORDERED: MIRT-92 PO (15:16)
[2019-09-04] MEDS ORDERED: VALP250C48 PO (15:16)
[2019-09-04] MEDS ORDERED: PREG75 PO (15:16)
[2019-09-04] MEDS ORDERED: DIVA500T52 PO (15:17)
[2019-09-04] MEDS ORDERED: PNEUMOCOCCAL VACCINE POLYVALENT 0.5 ML VIAL [PPSV23] IM ONE (16:00)
[2019-09-04] MEDS ORDERED: INFLUENZA VIRUS VACCINE QVS 2019-20 (3YR+)/PF 60 MCG/0.5 ML SYRINGE IM ONE (16:00)
[2019-09-04 17:07] VITALS: BP 145/99
[2019-09-04] MEDS: LORazepam 2 MG TABLET PO PRN (17:23)
[2019-09-04] MEDS ORDERED: QUEtiapine FUMARATE 100 MG TABLET PO SCH (21:00)
[2019-09-04] MEDS ORDERED: DIVALPROEX SODIUM 500 MG ER TABLET PO SCH (21:00)
[2019-09-05 06:19] VITALS: BP 134/85
[2019-09-05 07:28] LABS: BASOPHILS % (AUTO) 0.4 % (0.0-2.0); EOSINOPHILS % (AUTO) 1.7 % (1.0-6.0); HEMOGLOBIN 13.4 g/dL (13.5-17.5); LYMPHOCYTES # (AUTO) 2.8 K/uL (1.0-4.8); LYMPHOCYTES % (AUTO) 35.2 % (22.0-44.0); MEAN CORPUSCULAR HGB CONC 32.7 G/dL (31.0-37.0); MEAN CORPUSCULAR VOLUME 86 fL (80-100); MONOCYTES # (AUTO) 0.9 K/uL (0.1-1.0); MONOCYTES % (AUTO) 10.9 % (2.0-9.0); NEUTROPHILS # (AUTO) 4.2 K/uL (1.8-7.7); NEUTROPHILS % (AUTO) 51.8 % (40.0-70.0); PLATELET COUNT (AUTO) 343 K/uL (150-450); RED BLOOD CELL COUNT(AUTO) 4.78 MIL/uL (4.50-5.90); RED CELL DISTRIBUTION WIDTH 15.8 % (11.5-14.5)
[2019-09-05 07:58] LABS: ALANINE AMINOTRANSFERASE 30 U/L (12-78); ALBUMIN 3.4 g/dL (3.4-5.0); ALKALINE PHOSPHATASE 63 U/L (46-116); ANION GAP 13 mmol/L (8-16); ASPARTATE AMINOTRANSFERASE 10 U/L (15-37); BILIRUBIN,TOTAL 0.3 mg/dL (0.1-1.0); CALCIUM, TOTAL 8.9 mg/dL (8.8-10.5); CARBON DIOXIDE 24 mmol/L (22-29); CHLORIDE 107 mmol/L (98-107); CHOL/HDL RATIO 6.5 (4.2-7.3); CHOLESTEROL 188 mg/dL (131-200); CREATININE 1.16 mg/dL (0.60-1.30); FREE T4 (FREE THYROXINE) 1.55 ng/dL (0.76-1.46); GLOMERULAR FILTR. RATE CALC > 60 mL/min (>60); GLUCOSE,RANDOM 96 mg/dL (70-110); HDL CHOLESTEROL 29 mg/dL (40-60); LDL CHOL (CALC.) 131 mg/dL (0-130); POTASSIUM 3.4 mmol/L (3.5-5.1); SODIUM SERUM 144 mmol/L (136-145); THYROID STIMULATING HORMONE 0.63 uIU/mL (0.36-3.74); TOTAL PROTEIN, SERUM 7.3 g/dL (6.4-8.2); TRIGLYCERIDES 138 mg/dL (15-150); UREA NITROGEN, BLOOD 15 mg/dL (7-18); VALPROIC ACID 41 mcg/mL (50-100)
[2019-09-05 08:42] VITALS: BP 132/87
[2019-09-05] MEDS: DULoxetine HCL 20 MG CAPSULE PO SCH ×2 (09:12→09:20)
[2019-09-05] MEDS: PREGABALIN 75 MG CAPSULE PO SCH ×2 (09:12→12:39)
[2019-09-05] MEDS ORDERED: POTASSIUM CHLORIDE 20 MEQ ER TABLET PO ONE (10:00)
[2019-09-05] MEDS ORDERED: PROMETHAZINE HCL 25 MG TABLET PO PRN (16:15)
[2019-09-05] MEDS ORDERED: MAGNESIUM HYDROXIDE SUSPENSION 30 ML UDCUP PO PRN (16:15)
[2019-09-05] MEDS ORDERED: LOPERAMIDE HCL 2 MG CAPSULE PO PRN (16:15)
[2019-09-05] MEDS ORDERED: MAG HYDROX/AL HYDROX/SIMETH ES 30 ML SUSPENSION UDCUP PO PRN (16:15)
[2019-09-05] MEDS ORDERED: HydrOXYzine PAMOATE 50 MG CAPSULE PO PRN (16:15)
[2019-09-05] MEDS ORDERED: GuaiFENesin/D-METHORPHAN [SUGAR-FREE] 200-20MG/10 ML SYRUP UDCUP PO PRN (16:15)
[2019-09-05 16:30] VITALS: BP 128/91
[2019-09-05] MEDS: BusPIRone HCL 10 MG TABLET PO SCH (17:19)
[2019-09-05] MEDS: THIAMINE HCL 100 MG TABLET PO SCH (17:36)
[2019-09-05] MEDS: PREGABALIN 25 MG CAPSULE PO SCH (17:38)
[2019-09-05] MEDS ORDERED: HYPROMELLOSE 0.5% 15 ML OPHTHALMIC SOLUTION OU PRN (20:45)
[2019-09-05 20:48] VITALS: BP 119/99
[2019-09-05] MEDS: ACETAMINOPHEN 325 MG TABLET PO PRN (20:48)
[2019-09-05] MEDS: DIVALPROEX SODIUM 500 MG ER TABLET PO SCH (20:58)
[2019-09-05] MEDS ORDERED: OLANZapine 10 MG RAPDIS TABLET PO SCH (21:00)
[2019-09-06 04:33] VITALS: BP 133/85
[2019-09-06] MEDS ORDERED: DULoxetine HCL 20 MG CAPSULE PO SCH (09:00)
[2019-09-06] MEDS: FOLIC ACID 1 MG TABLET PO SCH (09:08)
[2019-09-06] MEDS: THIAMINE HCL 100 MG TABLET PO SCH ×2 (09:08→17:15)
[2019-09-06] MEDS: PREGABALIN 25 MG CAPSULE PO SCH ×2 (09:08→13:06)
[2019-09-06] MEDS: NALTREXONE HCL 50 MG TABLET PO SCH (09:08)
[2019-09-06] MEDS: MULTIVITAMINS WITH MINERALS, THERAPEUTIC TABLET PO SCH (09:08)
[2019-09-06] MEDS: BusPIRone HCL 10 MG TABLET PO SCH ×3 (09:09→17:15)
[2019-09-06] MEDS: PREGABALIN 50 MG CAPSULE PO SCH (17:15)
[2019-09-06] MEDS: DIVALPROEX SODIUM 500 MG ER TABLET PO SCH (20:26)
[2019-09-06] MEDS ORDERED: OLANZapine 5 MG RAPDIS TABLET PO SCH (21:00)
[2019-09-06] MEDS: CLINDAMYCIN HCL 300 MG CAPSULE PO SCH (21:15)
[2019-09-07] MEDS: CLINDAMYCIN HCL 300 MG CAPSULE PO SCH ×3 (08:51→16:58)
[2019-09-07] MEDS: BusPIRone HCL 10 MG TABLET PO SCH ×3 (08:51→16:58)
[2019-09-07] MEDS: NALTREXONE HCL 50 MG TABLET PO SCH (08:52)
[2019-09-07] MEDS: FOLIC ACID 1 MG TABLET PO SCH (08:52)
[2019-09-07] MEDS: PREGABALIN 50 MG CAPSULE PO SCH ×3 (08:52→16:58)
[2019-09-07] MEDS: MULTIVITAMINS WITH MINERALS, THERAPEUTIC TABLET PO SCH (08:52)
[2019-09-07] MEDS: THIAMINE HCL 100 MG TABLET PO SCH ×2 (08:52→16:58)
[2019-09-07] MEDS: DULoxetine HCL 30 MG CAPSULE PO SCH (08:52)
[2019-09-07] MEDS: DIVALPROEX SODIUM 500 MG ER TABLET PO SCH (20:19)
[2019-09-07] MEDS: OLANZapine 10 MG RAPDIS TABLET PO SCH (20:20)
[2019-09-08 08:30] LABS: POTASSIUM 3.9 mmol/L (3.5-5.1)
[2019-09-08 08:35] LABS: HEMOGLOBIN A1C 6.2 % (3.8-5.6)
[2019-09-08] MEDS: PREGABALIN 50 MG CAPSULE PO SCH ×3 (08:45→16:52)
[2019-09-08] MEDS: NALTREXONE HCL 50 MG TABLET PO SCH (08:45)
[2019-09-08] MEDS: FOLIC ACID 1 MG TABLET PO SCH (08:45)
[2019-09-08] MEDS: BusPIRone HCL 10 MG TABLET PO SCH ×3 (08:45→16:51)
[2019-09-08] MEDS: MULTIVITAMINS WITH MINERALS, THERAPEUTIC TABLET PO SCH (08:45)
[2019-09-08] MEDS: THIAMINE HCL 100 MG TABLET PO SCH ×2 (08:45→16:52)
[2019-09-08] MEDS: DULoxetine HCL 30 MG CAPSULE PO SCH (08:45)
[2019-09-08] MEDS: CLINDAMYCIN HCL 300 MG CAPSULE PO SCH ×3 (08:45→16:51)
[2019-09-08] MEDS: DIVALPROEX SODIUM 500 MG ER TABLET PO SCH (20:00)
[2019-09-08] MEDS: OLANZapine 10 MG RAPDIS TABLET PO SCH (20:01)
[2019-09-08] MEDS: ACETAMINOPHEN 325 MG TABLET PO PRN (20:01)
[2019-09-08 20:03] VITALS: BP 122/87
[2019-09-09] MEDS: BusPIRone HCL 10 MG TABLET PO SCH ×3 (08:16→17:09)
[2019-09-09] MEDS: MULTIVITAMINS WITH MINERALS, THERAPEUTIC TABLET PO SCH (08:16)
[2019-09-09] MEDS: FOLIC ACID 1 MG TABLET PO SCH (08:16)
[2019-09-09] MEDS: CLINDAMYCIN HCL 300 MG CAPSULE PO SCH ×3 (08:16→17:09)
[2019-09-09] MEDS: THIAMINE HCL 100 MG TABLET PO SCH ×2 (08:16→17:09)
[2019-09-09] MEDS: PREGABALIN 50 MG CAPSULE PO SCH ×2 (08:16→13:11)
[2019-09-09] MEDS: DULoxetine HCL 20 MG CAPSULE PO SCH (08:17)
[2019-09-09] MEDS: NALTREXONE HCL 50 MG TABLET PO SCH (08:17)
[2019-09-09] MEDS: LORazepam 2 MG TABLET PO PRN ×2 (12:22→16:26)
[2019-09-09 16:19] VITALS: BP 123/76
[2019-09-09] MEDS: ACETAMINOPHEN 325 MG TABLET PO PRN (16:27)
[2019-09-09] MEDS: PREGABALIN 75 MG CAPSULE PO SCH (17:09)
[2019-09-09] MEDS: DIVALPROEX SODIUM 500 MG ER TABLET PO SCH (20:43)
[2019-09-09] MEDS: OLANZapine 10 MG RAPDIS TABLET PO SCH (20:43)
[2019-09-10] MEDS: FOLIC ACID 1 MG TABLET PO SCH (08:55)
[2019-09-10] MEDS: MULTIVITAMINS WITH MINERALS, THERAPEUTIC TABLET PO SCH (08:55)
[2019-09-10] MEDS: BusPIRone HCL 10 MG TABLET PO SCH ×3 (08:55→16:40)
[2019-09-10] MEDS: DULoxetine HCL 20 MG CAPSULE PO SCH (08:55)
[2019-09-10] MEDS: PREGABALIN 75 MG CAPSULE PO SCH ×3 (08:55→16:40)
[2019-09-10] MEDS: NALTREXONE HCL 50 MG TABLET PO SCH (08:55)
[2019-09-10] MEDS: THIAMINE HCL 100 MG TABLET PO SCH ×2 (08:55→16:39)
[2019-09-10] MEDS: CLINDAMYCIN HCL 300 MG CAPSULE PO SCH ×3 (08:55→16:39)
[2019-09-10 17:21] VITALS: BP 124/93
[2019-09-10] MEDS: DIVALPROEX SODIUM 500 MG ER TABLET PO SCH (20:26)
[2019-09-10] MEDS: OLANZapine 10 MG RAPDIS TABLET PO SCH (20:27)
[2019-09-10 21:09] VITALS: BP 126/84
[2019-09-10] MEDS: ACETAMINOPHEN 325 MG TABLET PO PRN (21:09)
[2019-09-11 01:25] VITALS: BP 110/75
[2019-09-11] MEDS: MULTIVITAMINS WITH MINERALS, THERAPEUTIC TABLET PO SCH (09:14)
[2019-09-11] MEDS: DULoxetine HCL 20 MG CAPSULE PO SCH (09:14)
[2019-09-11] MEDS: THIAMINE HCL 100 MG TABLET PO SCH ×2 (09:14→17:15)
[2019-09-11] MEDS: PREGABALIN 75 MG CAPSULE PO SCH ×3 (09:14→17:15)
[2019-09-11] MEDS: BusPIRone HCL 10 MG TABLET PO SCH ×3 (09:14→17:15)
[2019-09-11] MEDS: FOLIC ACID 1 MG TABLET PO SCH (09:14)
[2019-09-11] MEDS: NALTREXONE HCL 50 MG TABLET PO SCH (09:14)
[2019-09-11] MEDS: CLINDAMYCIN HCL 300 MG CAPSULE PO SCH ×3 (09:14→17:15)
[2019-09-11] MEDS: LORazepam 2 MG TABLET PO PRN ×2 (13:54→21:18)
[2019-09-11 16:23] VITALS: BP 124/81
[2019-09-11] MEDS: OLANZapine 10 MG RAPDIS TABLET PO SCH (20:26)
[2019-09-11] MEDS: DIVALPROEX SODIUM 500 MG ER TABLET PO SCH (20:26)
[2019-09-12] MEDS: LORazepam 2 MG TABLET PO PRN ×2 (07:15→22:13)
[2019-09-12 08:39] VITALS: BP 119/78
[2019-09-12] MEDS: MULTIVITAMINS WITH MINERALS, THERAPEUTIC TABLET PO SCH (08:42)
[2019-09-12] MEDS: BusPIRone HCL 10 MG TABLET PO SCH ×3 (08:42→17:14)
[2019-09-12] MEDS: THIAMINE HCL 100 MG TABLET PO SCH ×2 (08:42→17:13)
[2019-09-12] MEDS: FOLIC ACID 1 MG TABLET PO SCH (08:43)
[2019-09-12] MEDS: CLINDAMYCIN HCL 300 MG CAPSULE PO SCH ×3 (08:43→17:15)
[2019-09-12] MEDS: DULoxetine HCL 20 MG CAPSULE PO SCH (08:43)
[2019-09-12] MEDS: NALTREXONE HCL 50 MG TABLET PO SCH (08:43)
[2019-09-12] MEDS: PREGABALIN 75 MG CAPSULE PO SCH ×2 (09:14→13:09)
[2019-09-12] MEDS: PREGABALIN 50 MG CAPSULE PO SCH (17:14)
[2019-09-12] MEDS: OLANZapine 10 MG RAPDIS TABLET PO SCH (20:59)
[2019-09-12] MEDS: DIVALPROEX SODIUM 500 MG ER TABLET PO SCH (20:59)
[2019-09-13 00:43] VITALS: BP 120/75
[2019-09-13 08:19] VITALS: BP 134/83
[2019-09-13] MEDS: PREGABALIN 50 MG CAPSULE PO SCH ×3 (08:34→16:36)
[2019-09-13] MEDS: MULTIVITAMINS WITH MINERALS, THERAPEUTIC TABLET PO SCH (08:34)
[2019-09-13] MEDS: BusPIRone HCL 10 MG TABLET PO SCH ×3 (08:34→16:37)
[2019-09-13] MEDS: CLINDAMYCIN HCL 300 MG CAPSULE PO SCH ×3 (08:34→16:36)
[2019-09-13] MEDS: FOLIC ACID 1 MG TABLET PO SCH (08:34)
[2019-09-13] MEDS: THIAMINE HCL 100 MG TABLET PO SCH ×2 (08:34→16:37)
[2019-09-13] MEDS: NALTREXONE HCL 50 MG TABLET PO SCH (08:34)
[2019-09-13] MEDS: DULoxetine HCL 60 MG CAPSULE PO SCH (08:34)
[2019-09-13] MEDS ORDERED: DULO60CA44 PO (13:56)
[2019-09-13] MEDS ORDERED: NALT50TA PO (13:56)
[2019-09-13] MEDS ORDERED: DIVA500T52 PO (13:56)
[2019-09-13] MEDS ORDERED: OLAN10TA22 PO (13:56)
[2019-09-13] MEDS ORDERED: BUSP10TA23 PO (13:56)
[2019-09-13] MEDS ORDERED: PREG50 PO (13:56)
[2019-09-13 16:06] VITALS: BP 126/85
[2019-09-13] MEDS: DIVALPROEX SODIUM 500 MG ER TABLET PO SCH (20:35)
[2019-09-13] MEDS: OLANZapine 10 MG RAPDIS TABLET PO SCH (20:37)
[2019-09-13] MEDS: LORazepam 2 MG TABLET PO PRN (23:04)
[2019-09-14 00:14] VITALS: BP 128/77
[2019-09-14 08:08] VITALS: BP 119/72
[2019-09-14] MEDS: NALTREXONE HCL 50 MG TABLET PO SCH (08:09)
[2019-09-14] MEDS: THIAMINE HCL 100 MG TABLET PO SCH (08:09)
[2019-09-14] MEDS: PREGABALIN 50 MG CAPSULE PO SCH (08:09)
[2019-09-14] MEDS: BusPIRone HCL 10 MG TABLET PO SCH (08:10)
[2019-09-14] MEDS: FOLIC ACID 1 MG TABLET PO SCH (08:10)
[2019-09-14] MEDS: DULoxetine HCL 60 MG CAPSULE PO SCH (08:10)
[2019-09-14] MEDS: MULTIVITAMINS WITH MINERALS, THERAPEUTIC TABLET PO SCH (08:10)
== END 2019-09-14 10:23 | disposition home or self-care (01) | DRG 750 ==
LOC: B2S 15:39
PROVIDERS: ADMIT Psychiatry & Neurology Psychiatry; ATTEND Psychiatry & Neurology Psychiatry
DX: F25.1 Schizoaffective disorder, depressive type (principal); R56.9 Unspecified convulsions; R45.851 Suicidal ideations; F15.10 Other stimulant abuse, uncomplicated; I10 Essential (primary) hypertension; J45.909 Unspecified asthma, uncomplicated; D64.9 Anemia, unspecified; R73.03 Prediabetes; Z91.19 Patient's noncompliance with other medical treatment and regimen; Z59.0 Homelessness; Z82.3 Family history of stroke
CPT/HCPCS: 83036; 84132; 84439; 84443; 86592; 90732; 93005; G0480

== ENCOUNTER 2020-03-07 06:13 | Inpatient (IN) | payer MEDICAID ==
[~2020-03-07] VITALS: Ht 180.3 cm; Wt 106.4 kg
[~2020-03-07 06:13] MED LIST changes: +BUSP10TA23 PO; -BUSP15 PO; +DIVA-80 PO; -DIVA500T52 PO; +DULO-8 PO; -DULO20CA30 PO; +OLAN10TA22 PO; +PREG50 PO; -PREG75 PO; -QUET100T33 PO
[2020-03-07] MEDS ORDERED: HALOPERIDOL 5 MG TABLET PO PRN (08:45)
[2020-03-07 09:30] VITALS: BP 121/79
[2020-03-07] MEDS ORDERED: -PHARMACY VACCINE NOTE- MISC ONE (11:30)
[2020-03-07] MEDS: PREGABALIN 50 MG CAPSULE PO SCH ×2 (13:12→16:46)
[2020-03-07] MEDS: DULoxetine HCL 60 MG CAPSULE PO SCH (13:24)
[2020-03-07 16:10] VITALS: BP 132/78
[2020-03-07] MEDS: BusPIRone HCL 10 MG TABLET PO SCH (16:45)
[2020-03-07] MEDS: OLANZapine 10 MG RAPDIS TABLET PO SCH (20:33)
[2020-03-07] MEDS: DIVALPROEX SODIUM 500 MG ER TABLET PO SCH (20:33)
[2020-03-08 06:10] VITALS: BP 122/72
[2020-03-08] MEDS ORDERED: PETROLATUM,WHITE 28 GM JELLY TP PRN (08:15)
[2020-03-08] MEDS ORDERED: ONDANSETRON HCL 4 MG TABLET PO PRN (08:15)
[2020-03-08] MEDS ORDERED: IBUPROFEN 400 MG TABLET PO PRN (08:15)
[2020-03-08] MEDS ORDERED: NICOTINE 14 MG/24 HOUR PATCH TD PRN (08:15)
[2020-03-08] MEDS ORDERED: MAGNESIUM HYDROXIDE SUSPENSION 30 ML UDCUP PO PRN (08:15)
[2020-03-08] MEDS ORDERED: CloNIDine HCL 0.1 MG TABLET PO PRN (08:15)
[2020-03-08] MEDS ORDERED: LOPERAMIDE HCL 2 MG CAPSULE PO PRN (08:15)
[2020-03-08] MEDS ORDERED: MAG HYDROX/AL HYDROX/SIMETH ES 30 ML SUSPENSION UDCUP PO PRN (08:15)
[2020-03-08] MEDS ORDERED: ACETAMINOPHEN 325 MG TABLET PO PRN (08:15)
[2020-03-08] MEDS ORDERED: ALBUTEROL SULFATE HFA 90 MCG/PUFF 8 GM INHALER IH PRN (08:15)
[2020-03-08] MEDS ORDERED: GuaiFENesin/D-METHORPHAN [SUGAR-FREE] 200-20MG/10 ML SYRUP UDCUP PO PRN (08:15)
[2020-03-08] MEDS ORDERED: DOCUSATE SODIUM 100 MG CAPSULE PO PRN (08:15)
[2020-03-08 08:19] VITALS: BP 108/66
[2020-03-08] MEDS: DULoxetine HCL 60 MG CAPSULE PO SCH (08:50)
[2020-03-08] MEDS: BusPIRone HCL 10 MG TABLET PO SCH ×3 (08:50→17:10)
[2020-03-08] MEDS: PREGABALIN 50 MG CAPSULE PO SCH ×3 (08:50→17:10)
[2020-03-08 16:23] VITALS: BP 127/67
[2020-03-08] MEDS: OLANZapine 10 MG RAPDIS TABLET PO SCH (20:47)
[2020-03-08] MEDS: DIVALPROEX SODIUM 500 MG ER TABLET PO SCH (20:47)
[2020-03-08] MEDS: LORazepam 2 MG TABLET PO PRN (20:48)
[2020-03-09 06:23] VITALS: BP 116/72
[2020-03-09 08:07] LABS: BASOPHILS % (AUTO) 0.4 % (0.0-2.0); EOSINOPHILS % (AUTO) 2.4 % (1.0-6.0); HEMATOCRIT 42.8 % (41-53); HEMOGLOBIN 13.9 g/dL (13.5-17.5); LYMPHOCYTES # (AUTO) 3.6 K/uL (1.0-4.8); LYMPHOCYTES % (AUTO) 43.2 % (22.0-44.0); MEAN CORPUSCULAR HEMOGLOBIN 27.9 pg (26.0-34.0); MEAN CORPUSCULAR HGB CONC 32.6 G/dL (31.0-37.0); MEAN CORPUSCULAR VOLUME 86 fL (80-100); MONOCYTES # (AUTO) 0.5 K/uL (0.1-1.0); MONOCYTES % (AUTO) 6.5 % (2.0-9.0); NEUTROPHILS % (AUTO) 47.5 % (40.0-70.0); PLATELET COUNT (AUTO) 329 K/uL (150-450); RED CELL DISTRIBUTION WIDTH 15.6 % (11.5-14.5)
[2020-03-09 08:32] LABS: ALANINE AMINOTRANSFERASE 26 U/L (12-78); ALBUMIN 3.3 g/dL (3.4-5.0); ALKALINE PHOSPHATASE 59 U/L (46-116); ANION GAP 7 mmol/L (8-16); ASPARTATE AMINOTRANSFERASE 13 U/L (15-37); BILIRUBIN,TOTAL 0.2 mg/dL (0.1-1.0); CALCIUM, TOTAL 9.3 mg/dL (8.8-10.5); CARBON DIOXIDE 28 mmol/L (22-29); CHLORIDE 105 mmol/L (98-107); CHOL/HDL RATIO 4.7 (4.2-7.3); CHOLESTEROL 175 mg/dL (131-200); CREATININE 1.22 mg/dL (0.60-1.30); GLOMERULAR FILTR. RATE CALC > 60 mL/min (>60); GLUCOSE,RANDOM 77 mg/dL (70-110); HDL CHOLESTEROL 37 mg/dL (40-60); LDL CHOL (CALC.) 107 mg/dL (0-130); POTASSIUM 4.4 mmol/L (3.5-5.1); SODIUM SERUM 140 mmol/L (136-145); TOTAL PROTEIN, SERUM 6.8 g/dL (6.4-8.2); TRIGLYCERIDES 154 mg/dL (15-150); UREA NITROGEN, BLOOD 16 mg/dL (7-18)
[2020-03-09] MEDS: BusPIRone HCL 10 MG TABLET PO SCH ×3 (09:21→16:47)
[2020-03-09] MEDS: DULoxetine HCL 60 MG CAPSULE PO SCH (09:21)
[2020-03-09] MEDS: PREGABALIN 50 MG CAPSULE PO SCH ×3 (09:21→16:47)
[2020-03-09 14:45] VITALS: BP 118/69
[2020-03-09 16:10] VITALS: BP 123/62
[2020-03-09] MEDS: DIVALPROEX SODIUM 500 MG ER TABLET PO SCH ×2 (16:47→20:54)
[2020-03-09] MEDS: OLANZapine 10 MG RAPDIS TABLET PO SCH (20:54)
[2020-03-10] MEDS: DIVALPROEX SODIUM 500 MG ER TABLET PO SCH ×3 (08:21→20:35)
[2020-03-10] MEDS: DULoxetine HCL 60 MG CAPSULE PO SCH (08:21)
[2020-03-10] MEDS: BusPIRone HCL 10 MG TABLET PO SCH ×3 (08:21→16:56)
[2020-03-10] MEDS: PREGABALIN 50 MG CAPSULE PO SCH ×3 (08:21→16:56)
[2020-03-10 16:22] VITALS: BP 113/64
[2020-03-10] MEDS: OLANZapine 10 MG RAPDIS TABLET PO SCH (20:35)
[2020-03-11] MEDS: PREGABALIN 50 MG CAPSULE PO SCH ×3 (08:20→16:12)
[2020-03-11] MEDS: BusPIRone HCL 10 MG TABLET PO SCH ×3 (08:20→16:12)
[2020-03-11] MEDS: DIVALPROEX SODIUM 500 MG ER TABLET PO SCH ×3 (08:20→20:37)
[2020-03-11] MEDS: DULoxetine HCL 60 MG CAPSULE PO SCH (08:20)
[2020-03-11 09:10] VITALS: BP 109/68
[2020-03-11] MEDS: LORazepam 2 MG TABLET PO PRN (16:13)
[2020-03-11 16:15] VITALS: BP 125/87
[2020-03-11] MEDS: OLANZapine 10 MG RAPDIS TABLET PO SCH (20:37)
[2020-03-12 06:11] VITALS: BP 121/84
[2020-03-12] MEDS: DIVALPROEX SODIUM 500 MG ER TABLET PO SCH ×3 (08:52→21:06)
[2020-03-12] MEDS: DULoxetine HCL 60 MG CAPSULE PO SCH (08:53)
[2020-03-12] MEDS: BusPIRone HCL 10 MG TABLET PO SCH ×3 (08:53→16:25)
[2020-03-12] MEDS: PREGABALIN 50 MG CAPSULE PO SCH ×3 (08:53→16:24)
[2020-03-12 16:22] VITALS: BP 111/67
[2020-03-12] MEDS: LORazepam 2 MG TABLET PO PRN (16:24)
[2020-03-12] MEDS: OLANZapine 10 MG RAPDIS TABLET PO SCH (21:06)
[2020-03-12] MEDS: ZOLPIDEM TARTRATE 10 MG TABLET PO PRN (22:23)
[2020-03-13 06:17] VITALS: BP 124/66
[2020-03-13 08:17] VITALS: BP 118/79
[2020-03-13] MEDS: DULoxetine HCL 60 MG CAPSULE PO SCH (09:18)
[2020-03-13] MEDS: PREGABALIN 50 MG CAPSULE PO SCH ×3 (09:18→16:16)
[2020-03-13] MEDS: BusPIRone HCL 10 MG TABLET PO SCH ×3 (09:19→16:16)
[2020-03-13] MEDS: DIVALPROEX SODIUM 500 MG ER TABLET PO SCH ×3 (09:27→20:08)
[2020-03-13] MEDS: LORazepam 2 MG TABLET PO PRN (16:17)
[2020-03-13 16:21] VITALS: BP 122/72
[2020-03-13] MEDS: ZOLPIDEM TARTRATE 10 MG TABLET PO PRN (20:08)
[2020-03-13] MEDS: OLANZapine 10 MG RAPDIS TABLET PO SCH (20:08)
[2020-03-14 06:42] VITALS: BP 116/67
[2020-03-14 08:22] VITALS: BP 129/85
[2020-03-14] MEDS: BusPIRone HCL 10 MG TABLET PO SCH ×3 (08:50→16:08)
[2020-03-14] MEDS: PREGABALIN 50 MG CAPSULE PO SCH ×3 (08:53→16:07)
[2020-03-14] MEDS: DIVALPROEX SODIUM 500 MG ER TABLET PO SCH ×3 (08:54→20:49)
[2020-03-14] MEDS: DULoxetine HCL 60 MG CAPSULE PO SCH (08:54)
[2020-03-14] MEDS: LORazepam 2 MG TABLET PO PRN ×3 (14:27→22:28)
[2020-03-14 16:26] VITALS: BP 128/71
[2020-03-14] MEDS: ZOLPIDEM TARTRATE 10 MG TABLET PO PRN (20:49)
[2020-03-14] MEDS: OLANZapine 10 MG RAPDIS TABLET PO SCH (20:49)
[2020-03-15 03:20] VITALS: BP 118/85
[2020-03-15 08:39] VITALS: BP 120/85
[2020-03-15] MEDS: PREGABALIN 50 MG CAPSULE PO SCH ×3 (08:45→16:06)
[2020-03-15] MEDS: DULoxetine HCL 60 MG CAPSULE PO SCH (08:45)
[2020-03-15] MEDS: DIVALPROEX SODIUM 500 MG ER TABLET PO SCH ×3 (08:45→20:17)
[2020-03-15] MEDS: BusPIRone HCL 10 MG TABLET PO SCH ×3 (08:46→16:06)
[2020-03-15] MEDS: LORazepam 2 MG TABLET PO PRN ×3 (11:42→21:56)
[2020-03-15 16:13] VITALS: BP 127/89
[2020-03-15] MEDS: OLANZapine 10 MG RAPDIS TABLET PO SCH (20:17)
[2020-03-15] MEDS: ZOLPIDEM TARTRATE 10 MG TABLET PO PRN (21:56)
[2020-03-16 03:48] VITALS: BP 117/77
[2020-03-16] MEDS: DULoxetine HCL 60 MG CAPSULE PO SCH (08:48)
[2020-03-16] MEDS: DIVALPROEX SODIUM 500 MG ER TABLET PO SCH (08:48)
[2020-03-16] MEDS: BusPIRone HCL 10 MG TABLET PO SCH ×2 (08:48→13:00)
[2020-03-16] MEDS: PREGABALIN 50 MG CAPSULE PO SCH ×2 (08:48→13:00)
[2020-03-16 10:36] VITALS: BP 141/90
[2020-03-16] MEDS: LORazepam 2 MG TABLET PO PRN (11:45)
== END 2020-03-16 16:00 | disposition home or self-care (01) | DRG 750 ==
LOC: B3A 08:43
DX: F25.9 Schizoaffective disorder, unspecified (principal); E78.5 Hyperlipidemia, unspecified; G40.909 Epilepsy, unspecified, not intractable, without status epilepticus; I10 Essential (primary) hypertension; J45.909 Unspecified asthma, uncomplicated; R45.851 Suicidal ideations; R73.03 Prediabetes; Z59.0 Homelessness; Z91.5 Personal history of self-harm; Z88.0 Allergy status to penicillin
CPT/HCPCS: 83036

== ENCOUNTER 2021-03-18 06:54 | Inpatient (IN) | payer MEDICAID ==
[~2021-03-18] VITALS: Ht 180.3 cm; Wt 100.2 kg
[~2021-03-18 06:54] MED LIST changes: -DULO-8 PO; +DULO60CA98 PO; -NALT50TA PO
[2021-03-18] MEDS ORDERED: MAGNESIUM HYDROXIDE SUSPENSION 30 ML UDCUP PO PRN (08:30)
[2021-03-18] MEDS ORDERED: MAG HYDROX/AL HYDROX/SIMETH ES 30 ML SUSPENSION UDCUP PO PRN (08:30)
[2021-03-18] MEDS ORDERED: ACETAMINOPHEN 325 MG TABLET PO PRN (08:30)
[2021-03-18] MEDS ORDERED: PROMETHAZINE HCL 25 MG TABLET PO PRN (08:30)
[2021-03-18] MEDS ORDERED: LOPERAMIDE HCL 2 MG CAPSULE PO PRN (08:30)
[2021-03-18] MEDS ORDERED: GuaiFENesin/D-METHORPHAN [SUGAR-FREE] 200-20MG/10 ML SYRUP UDCUP PO PRN (08:30)
[2021-03-18] MEDS ORDERED: TUBERCULIN, PURIFIED PROTEIN DERIVATIVE 5 TU/0.1 ML SYRINGE ID ONE (08:30)
[2021-03-18] MEDS ORDERED: HydrOXYzine PAMOATE 50 MG CAPSULE PO PRN (08:30)
[2021-03-18] MEDS ORDERED: DULoxetine HCL 20 MG CAPSULE PO SCH (09:00)
[2021-03-18 09:40] LABS: GLUCOMETER DEV NAME(LOC) POC.BV
[2021-03-18 11:06] VITALS: BP 143/81
[2021-03-18] MEDS: PREGABALIN 25 MG CAPSULE PO SCH ×2 (13:00→19:52)
[2021-03-18] MEDS: THIAMINE 100 MG TABLET PO SCH (17:03)
[2021-03-18] MEDS: DIVALPROEX SODIUM 500 MG ER TABLET PO SCH (20:39)
[2021-03-18] MEDS: MELATONIN 5 MG TABLET PO SCH (20:39)
[2021-03-18] MEDS: OLANZapine 5 MG RAPDIS TABLET PO SCH (20:39)
[2021-03-19 01:14] VITALS: BP 154/88
[2021-03-19] MEDS ORDERED: -PHARMACY VACCINE NOTE- MISC ONE (06:45)
[2021-03-19] MEDS: MULTIVITAMINS WITH MINERALS, THERAPEUTIC TABLET PO SCH (09:48)
[2021-03-19] MEDS: FOLIC ACID 1 MG TABLET PO SCH (09:48)
[2021-03-19] MEDS: OMEGA-3/DHA/EPA/FISH OIL 1,000 MG CAPSULE PO SCH (09:49)
[2021-03-19] MEDS: NALTREXONE HCL 50 MG TABLET PO SCH (09:49)
[2021-03-19] MEDS: THIAMINE 100 MG TABLET PO SCH ×2 (09:51→16:31)
[2021-03-19] MEDS: PREGABALIN 25 MG CAPSULE PO SCH ×3 (09:51→16:31)
[2021-03-19] MEDS: DIVALPROEX SODIUM 500 MG ER TABLET PO SCH (20:28)
[2021-03-19] MEDS: MELATONIN 5 MG TABLET PO SCH (20:28)
[2021-03-19] MEDS: OLANZapine 5 MG RAPDIS TABLET PO SCH (20:29)
[2021-03-20 01:18] VITALS: BP 147/83
[2021-03-20 04:22] VITALS: BP 122/89
[2021-03-20] MEDS: LORazepam 2 MG TABLET PO PRN (04:25)
[2021-03-20] MEDS: FOLIC ACID 1 MG TABLET PO SCH (08:59)
[2021-03-20] MEDS: PREGABALIN 25 MG CAPSULE PO SCH ×3 (08:59→16:15)
[2021-03-20] MEDS: MULTIVITAMINS WITH MINERALS, THERAPEUTIC TABLET PO SCH (08:59)
[2021-03-20] MEDS: THIAMINE 100 MG TABLET PO SCH ×2 (08:59→16:15)
[2021-03-20] MEDS: OMEGA-3/DHA/EPA/FISH OIL 1,000 MG CAPSULE PO SCH (08:59)
[2021-03-20] MEDS: DULoxetine HCL 30 MG CAPSULE PO SCH (09:00)
[2021-03-20] MEDS: NALTREXONE HCL 50 MG TABLET PO SCH (09:00)
[2021-03-20] MEDS: MELATONIN 5 MG TABLET PO SCH (20:17)
[2021-03-20] MEDS: DIVALPROEX SODIUM 500 MG ER TABLET PO SCH (20:17)
[2021-03-20] MEDS: OLANZapine 10 MG RAPDIS TABLET PO SCH (20:24)
[2021-03-21 01:29] VITALS: BP 130/82
[2021-03-21 07:53] LABS: BASOPHILS % (AUTO) 0.3 % (0.0-2.0); EOSINOPHILS % (AUTO) 3.1 % (1.0-6.0); HEMATOCRIT 44.7 % (41-53); HEMOGLOBIN 14.5 g/dL (13.5-17.5); LYMPHOCYTES # (AUTO) 3.5 K/uL (1.0-4.8); LYMPHOCYTES % (AUTO) 40.3 % (22.0-44.0); MEAN CORPUSCULAR HEMOGLOBIN 27.7 pg (26.0-34.0); MEAN CORPUSCULAR HGB CONC 32.3 G/dL (31.0-37.0); MEAN CORPUSCULAR VOLUME 86 fL (80-100); MONOCYTES # (AUTO) 0.6 K/uL (0.1-1.0); MONOCYTES % (AUTO) 6.3 % (2.0-9.0); NEUTROPHILS # (AUTO) 4.4 K/uL (1.8-7.7); PLATELET COUNT (AUTO) 372 K/uL (150-450); RED BLOOD CELL COUNT(AUTO) 5.22 MIL/uL (4.50-5.90); RED CELL DISTRIBUTION WIDTH 15.6 % (11.5-14.5)
[2021-03-21 08:09] LABS: HEMOGLOBIN A1C 6.2 % (3.8-5.6)
[2021-03-21] MEDS: FOLIC ACID 1 MG TABLET PO SCH (08:12)
[2021-03-21] MEDS: PREGABALIN 25 MG CAPSULE PO SCH ×3 (08:12→16:32)
[2021-03-21] MEDS: MULTIVITAMINS WITH MINERALS, THERAPEUTIC TABLET PO SCH (08:12)
[2021-03-21] MEDS: NALTREXONE HCL 50 MG TABLET PO SCH (08:12)
[2021-03-21] MEDS: OMEGA-3/DHA/EPA/FISH OIL 1,000 MG CAPSULE PO SCH (08:13)
[2021-03-21] MEDS: THIAMINE 100 MG TABLET PO SCH ×2 (08:13→16:28)
[2021-03-21] MEDS: DULoxetine HCL 30 MG CAPSULE PO SCH (08:13)
[2021-03-21 08:15] LABS: ALANINE AMINOTRANSFERASE 23 U/L (12-78); ALBUMIN 3.1 g/dL (3.4-5.0); ALKALINE PHOSPHATASE 56 U/L (46-116); ANION GAP 8 mmol/L (8-16); ASPARTATE AMINOTRANSFERASE 9 U/L (15-37); BILIRUBIN,TOTAL 0.2 mg/dL (0.1-1.0); CALCIUM, TOTAL 8.4 mg/dL (8.8-10.5); CARBON DIOXIDE 28 mmol/L (22-29); CHLORIDE 107 mmol/L (98-107); CHOL/HDL RATIO 5.2 (4.2-7.3); CHOLESTEROL 192 mg/dL (131-200); CREATININE 0.85 mg/dL (0.60-1.30); GLOMERULAR FILTR. RATE CALC > 60 mL/min (>60); GLUCOSE,RANDOM 74 mg/dL (70-110); HDL CHOLESTEROL 37 mg/dL (40-60); LDL CHOL (CALC.) 129 mg/dL (0-130); POTASSIUM 4.1 mmol/L (3.5-5.1); SODIUM SERUM 143 mmol/L (136-145); TOTAL PROTEIN, SERUM 6.8 g/dL (6.4-8.2); TRIGLYCERIDES 131 mg/dL (15-150); UREA NITROGEN, BLOOD 14 mg/dL (7-18)
[2021-03-21 08:45] LABS: FREE T4 (FREE THYROXINE) 0.92 ng/dL (0.76-1.46); THYROID STIMULATING HORMONE 0.28 uIU/mL (0.36-3.74); VALPROIC ACID 48 mcg/mL (50-100)
[2021-03-21 09:18] LABS: GLUCOMETER DEV NAME(LOC) BV2S.; GLUCOSE,POINT OF CARE 84 MG/DL (70-110)
[2021-03-21 16:14] VITALS: BP 113/78
[2021-03-21] MEDS: DIVALPROEX SODIUM 500 MG ER TABLET PO SCH (20:12)
[2021-03-21] MEDS: MELATONIN 5 MG TABLET PO SCH (20:12)
[2021-03-21] MEDS: OLANZapine 10 MG RAPDIS TABLET PO SCH (20:12)
[2021-03-22 01:46] VITALS: BP 129/82
[2021-03-22] MEDS: DULoxetine HCL 20 MG CAPSULE PO SCH (08:44)
[2021-03-22] MEDS: FOLIC ACID 1 MG TABLET PO SCH (08:44)
[2021-03-22] MEDS: OMEGA-3/DHA/EPA/FISH OIL 1,000 MG CAPSULE PO SCH (08:44)
[2021-03-22] MEDS: MULTIVITAMINS WITH MINERALS, THERAPEUTIC TABLET PO SCH (08:45)
[2021-03-22] MEDS: PREGABALIN 25 MG CAPSULE PO SCH ×3 (08:45→16:34)
[2021-03-22] MEDS: NALTREXONE HCL 50 MG TABLET PO SCH (08:45)
[2021-03-22] MEDS: THIAMINE 100 MG TABLET PO SCH ×2 (08:45→16:33)
[2021-03-22] MEDS: LORazepam 2 MG TABLET PO PRN ×2 (14:46→20:55)
[2021-03-22 16:33] VITALS: BP 109/60
[2021-03-22] MEDS: DIVALPROEX SODIUM 500 MG ER TABLET PO SCH (20:07)
[2021-03-22] MEDS: OLANZapine 10 MG RAPDIS TABLET PO SCH (20:08)
[2021-03-22] MEDS: MELATONIN 5 MG TABLET PO SCH (20:08)
[2021-03-23 01:19] VITALS: BP 118/77
[2021-03-23 07:52] LABS: COVID AG,FIA SOURCE NASOPHARYNGEAL
[2021-03-23] MEDS: THIAMINE 100 MG TABLET PO SCH ×2 (08:31→16:04)
[2021-03-23] MEDS: NALTREXONE HCL 50 MG TABLET PO SCH (08:31)
[2021-03-23] MEDS: OMEGA-3/DHA/EPA/FISH OIL 1,000 MG CAPSULE PO SCH (08:31)
[2021-03-23] MEDS: MULTIVITAMINS WITH MINERALS, THERAPEUTIC TABLET PO SCH (08:31)
[2021-03-23] MEDS: FOLIC ACID 1 MG TABLET PO SCH (08:31)
[2021-03-23] MEDS: DULoxetine HCL 20 MG CAPSULE PO SCH (08:31)
[2021-03-23] MEDS: PREGABALIN 25 MG CAPSULE PO SCH ×3 (08:31→16:03)
[2021-03-23] MEDS: LORazepam 2 MG TABLET PO PRN ×2 (16:03→21:41)
[2021-03-23 16:45] LABS: GLUCOMETER DEV NAME(LOC) BV2S.; GLUCOSE,POINT OF CARE 131 MG/DL (70-110)
[2021-03-23 18:14] VITALS: BP 124/90
[2021-03-23] MEDS: MELATONIN 5 MG TABLET PO SCH (20:45)
[2021-03-23] MEDS: OLANZapine 10 MG RAPDIS TABLET PO SCH (20:45)
[2021-03-23] MEDS: DIVALPROEX SODIUM 500 MG ER TABLET PO SCH (20:45)
[2021-03-24 05:01] VITALS: BP 122/76
[2021-03-24] MEDS: LORazepam 2 MG TABLET PO PRN ×2 (08:35→17:23)
[2021-03-24 08:41] VITALS: BP 114/66
[2021-03-24] MEDS: MULTIVITAMINS WITH MINERALS, THERAPEUTIC TABLET PO SCH (09:00)
[2021-03-24] MEDS: FOLIC ACID 1 MG TABLET PO SCH (09:00)
[2021-03-24] MEDS: THIAMINE 100 MG TABLET PO SCH ×2 (09:00→16:34)
[2021-03-24] MEDS: NALTREXONE HCL 50 MG TABLET PO SCH (09:00)
[2021-03-24] MEDS: DULoxetine HCL 20 MG CAPSULE PO SCH (09:00)
[2021-03-24] MEDS: PREGABALIN 25 MG CAPSULE PO SCH ×3 (09:00→16:34)
[2021-03-24] MEDS: OMEGA-3/DHA/EPA/FISH OIL 1,000 MG CAPSULE PO SCH (09:00)
[2021-03-24 16:38] LABS: GLUCOMETER DEV NAME(LOC) BV2S.; GLUCOSE,POINT OF CARE 129 MG/DL (70-110)
[2021-03-24 17:23] VITALS: BP 129/86
[2021-03-24] MEDS: OLANZapine 10 MG RAPDIS TABLET PO SCH (20:40)
[2021-03-24] MEDS: MELATONIN 5 MG TABLET PO SCH (20:40)
[2021-03-24] MEDS: DIVALPROEX SODIUM 500 MG ER TABLET PO SCH (20:41)
[2021-03-25 04:23] VITALS: BP 132/79
[2021-03-25 06:48] LABS: GLUCOMETER DEV NAME(LOC) BV2S.; GLUCOSE,POINT OF CARE 78 MG/DL (70-110)
[2021-03-25 08:10] VITALS: BP 116/76
[2021-03-25] MEDS: PREGABALIN 25 MG CAPSULE PO SCH ×2 (08:52→12:28)
[2021-03-25] MEDS: FOLIC ACID 1 MG TABLET PO SCH (08:52)
[2021-03-25] MEDS: DULoxetine HCL 20 MG CAPSULE PO SCH (08:52)
[2021-03-25] MEDS: OMEGA-3/DHA/EPA/FISH OIL 1,000 MG CAPSULE PO SCH (08:52)
[2021-03-25] MEDS: MULTIVITAMINS WITH MINERALS, THERAPEUTIC TABLET PO SCH (08:52)
[2021-03-25] MEDS: THIAMINE 100 MG TABLET PO SCH ×2 (08:52→16:02)
[2021-03-25] MEDS: NALTREXONE HCL 50 MG TABLET PO SCH (08:56)
[2021-03-25] MEDS: LORazepam 2 MG TABLET PO PRN ×2 (12:21→20:10)
[2021-03-25] MEDS: PREGABALIN 75 MG CAPSULE PO SCH (16:03)
[2021-03-25 16:09] VITALS: BP 134/86
[2021-03-25 16:40] LABS: GLUCOMETER DEV NAME(LOC) BV2S.; GLUCOSE,POINT OF CARE 185 MG/DL (70-110)
[2021-03-25] MEDS: MELATONIN 5 MG TABLET PO SCH (20:10)
[2021-03-25] MEDS: OLANZapine 10 MG RAPDIS TABLET PO SCH (20:10)
[2021-03-25] MEDS: DIVALPROEX SODIUM 500 MG ER TABLET PO SCH (20:10)
[2021-03-25] MEDS: ZOLPIDEM TARTRATE 10 MG TABLET PO PRN (21:12)
[2021-03-26 01:52] VITALS: BP 122/67
[2021-03-26 06:26] LABS: GLUCOMETER DEV NAME(LOC) BV2S.; GLUCOSE,POINT OF CARE 94 MG/DL (70-110)
[2021-03-26 07:44] LABS: APPEARANCE,URINE CLEAR (CLEAR); BILIRUBIN,URINE NEGATIVE (NEGATIVE); GLUCOSE, URINE (UA) NEGATIVE (NEGATIVE); KETONES,URINE 15 mg/dL (NEGATIVE); LEUKOCYTE ESTERASE ,URINE NEGATIVE (NEGATIVE); NITRATE,URINE NEGATIVE (NEGATIVE); OCCULT BLOOD,URINE NEGATIVE (NEGATIVE); PH,URINE 5.5 (5.0-8.0); PROTEIN,URINE NEGATIVE (NEGATIVE); UROBILINOGEN,URINE 0.2 mg/dL (<=1.0)
[2021-03-26 07:46] LABS: AMPHET/METH SCREEN,URINE NEGATIVE (NEGATIVE); BARBITURATE SCREEN, URINE NEGATIVE (NEGATIVE); BENZODIAZEPINES SCREEN,URINE NEGATIVE (NEGATIVE); CANNABINOID SCREEN,URINE POSITIVE (NEGATIVE); COCAINE SCREEN,URINE NEGATIVE (NEGATIVE); METHADONE SCREEN, URINE NEGATIVE (NEGATIVE)
[2021-03-26 08:02] LABS: OPIATE SCREEN,URINE NEGATIVE (NEGATIVE)
[2021-03-26 08:04] LABS: PHENCYCLIDINE SCREEN,URINE NEGATIVE (NEGATIVE)
[2021-03-26] MEDS: PREGABALIN 75 MG CAPSULE PO SCH ×3 (09:22→16:32)
[2021-03-26] MEDS: OMEGA-3/DHA/EPA/FISH OIL 1,000 MG CAPSULE PO SCH (09:22)
[2021-03-26] MEDS: FOLIC ACID 1 MG TABLET PO SCH (09:22)
[2021-03-26] MEDS: DULoxetine HCL 60 MG CAPSULE PO SCH (09:22)
[2021-03-26] MEDS: MULTIVITAMINS WITH MINERALS, THERAPEUTIC TABLET PO SCH (09:22)
[2021-03-26] MEDS: THIAMINE 100 MG TABLET PO SCH ×2 (09:22→16:32)
[2021-03-26] MEDS: NALTREXONE HCL 50 MG TABLET PO SCH (09:22)
[2021-03-26] MEDS: LORazepam 2 MG TABLET PO PRN (15:03)
[2021-03-26 16:27] VITALS: BP 138/96
[2021-03-26 16:45] LABS: GLUCOMETER DEV NAME(LOC) BV2S.; GLUCOSE,POINT OF CARE 117 MG/DL (70-110)
[2021-03-26] MEDS: DIVALPROEX SODIUM 500 MG ER TABLET PO SCH (20:31)
[2021-03-26] MEDS: MELATONIN 5 MG TABLET PO SCH (20:31)
[2021-03-26] MEDS: OLANZapine 10 MG RAPDIS TABLET PO SCH (20:31)
[2021-03-27 01:07] VITALS: BP 129/71
[2021-03-27] MEDS: LORazepam 2 MG TABLET PO PRN ×2 (04:04→15:00)
[2021-03-27 05:57] LABS: GLUCOMETER DEV NAME(LOC) BV2S.; GLUCOSE,POINT OF CARE 77 MG/DL (70-110)
[2021-03-27 08:28] VITALS: BP 104/60
[2021-03-27] MEDS: NALTREXONE HCL 50 MG TABLET PO SCH (09:25)
[2021-03-27] MEDS: DULoxetine HCL 60 MG CAPSULE PO SCH (09:25)
[2021-03-27] MEDS: OMEGA-3/DHA/EPA/FISH OIL 1,000 MG CAPSULE PO SCH (09:25)
[2021-03-27] MEDS: FOLIC ACID 1 MG TABLET PO SCH (09:25)
[2021-03-27] MEDS: THIAMINE 100 MG TABLET PO SCH (09:25)
[2021-03-27] MEDS: MULTIVITAMINS WITH MINERALS, THERAPEUTIC TABLET PO SCH (09:25)
[2021-03-27] MEDS: PREGABALIN 75 MG CAPSULE PO SCH ×2 (09:26→12:24)
[2021-03-27] MEDS: PREGABALIN 50 MG CAPSULE PO SCH (16:11)
[2021-03-27 16:18] VITALS: BP 100/78
[2021-03-27 16:37] LABS: GLUCOMETER DEV NAME(LOC) BV2S.; GLUCOSE,POINT OF CARE 141 MG/DL (70-110)
[2021-03-27] MEDS: MELATONIN 5 MG TABLET PO SCH (20:27)
[2021-03-27] MEDS: OLANZapine 10 MG RAPDIS TABLET PO SCH (20:27)
[2021-03-27] MEDS: DIVALPROEX SODIUM 500 MG ER TABLET PO SCH (20:28)
[2021-03-27] MEDS: ZOLPIDEM TARTRATE 10 MG TABLET PO PRN (21:38)
[2021-03-28 01:07] VITALS: BP 127/71
[2021-03-28 06:30] LABS: GLUCOMETER DEV NAME(LOC) BV2S.; GLUCOSE,POINT OF CARE 101 MG/DL (70-110)
[2021-03-28] MEDS: DULoxetine HCL 60 MG CAPSULE PO SCH (08:54)
[2021-03-28] MEDS: OMEGA-3/DHA/EPA/FISH OIL 1,000 MG CAPSULE PO SCH (08:54)
[2021-03-28] MEDS: PREGABALIN 50 MG CAPSULE PO SCH ×3 (08:55→16:35)
[2021-03-28] MEDS: NALTREXONE HCL 50 MG TABLET PO SCH (08:55)
[2021-03-28] MEDS: MULTIVITAMINS WITH MINERALS, THERAPEUTIC TABLET PO SCH (08:55)
[2021-03-28] MEDS: LORazepam 2 MG TABLET PO PRN ×2 (12:32→17:26)
[2021-03-28] MEDS: OLANZapine 5 MG RAPDIS TABLET PO PRN (14:11)
[2021-03-28 16:24] VITALS: BP 117/79
[2021-03-28 17:46] LABS: GLUCOMETER DEV NAME(LOC) BV2S.; GLUCOSE,POINT OF CARE 113 MG/DL (70-110)
[2021-03-28] MEDS: MELATONIN 5 MG TABLET PO SCH (20:24)
[2021-03-28] MEDS: DIVALPROEX SODIUM 500 MG ER TABLET PO SCH (20:24)
[2021-03-28] MEDS: OLANZapine 10 MG RAPDIS TABLET PO SCH (20:25)
[2021-03-28] MEDS: ZOLPIDEM TARTRATE 10 MG TABLET PO PRN (21:09)
[2021-03-29 01:06] VITALS: BP 119/76
[2021-03-29] MEDS: NALTREXONE HCL 50 MG TABLET PO SCH (11:17)
[2021-03-29] MEDS: MULTIVITAMINS WITH MINERALS, THERAPEUTIC TABLET PO SCH (11:18)
[2021-03-29] MEDS: PREGABALIN 50 MG CAPSULE PO SCH ×3 (11:18→17:11)
[2021-03-29] MEDS: OMEGA-3/DHA/EPA/FISH OIL 1,000 MG CAPSULE PO SCH (11:23)
[2021-03-29] MEDS: DULoxetine HCL 60 MG CAPSULE PO SCH (11:23)
[2021-03-29] MEDS: OLANZapine 5 MG RAPDIS TABLET PO PRN (13:37)
[2021-03-29] MEDS: LORazepam 2 MG TABLET PO PRN ×2 (15:40→20:40)
[2021-03-29 16:17] VITALS: BP 135/79
[2021-03-29 16:25] LABS: GLUCOMETER DEV NAME(LOC) BV2S.; GLUCOSE,POINT OF CARE 119 MG/DL (70-110)
[2021-03-29] MEDS: OLANZapine 5 MG RAPDIS TABLET PO SCH (16:33)
[2021-03-29] MEDS: MELATONIN 5 MG TABLET PO SCH (20:31)
[2021-03-29] MEDS: DIVALPROEX SODIUM 500 MG ER TABLET PO SCH (20:32)
[2021-03-30 00:43] VITALS: BP 129/75
[2021-03-30 07:46] LABS: COVID AG,FIA SOURCE NASOPHARYNGEAL
[2021-03-30] MEDS: MULTIVITAMINS WITH MINERALS, THERAPEUTIC TABLET PO SCH (09:26)
[2021-03-30] MEDS: DULoxetine HCL 60 MG CAPSULE PO SCH (09:26)
[2021-03-30] MEDS: PREGABALIN 50 MG CAPSULE PO SCH ×3 (09:26→16:02)
[2021-03-30] MEDS: NALTREXONE HCL 50 MG TABLET PO SCH (09:27)
[2021-03-30] MEDS: OMEGA-3/DHA/EPA/FISH OIL 1,000 MG CAPSULE PO SCH (09:27)
[2021-03-30] MEDS: OLANZapine 5 MG RAPDIS TABLET PO SCH ×3 (09:28→16:02)
[2021-03-30] MEDS: LORazepam 2 MG TABLET PO PRN ×2 (16:02→20:57)
[2021-03-30 16:17] LABS: GLUCOMETER DEV NAME(LOC) BV2S.; GLUCOSE,POINT OF CARE 183 MG/DL (70-110)
[2021-03-30 16:22] VITALS: BP 111/84
[2021-03-30] MEDS: MELATONIN 5 MG TABLET PO SCH (20:33)
[2021-03-30] MEDS: DIVALPROEX SODIUM 500 MG ER TABLET PO SCH (20:33)
[2021-03-30] MEDS: OLANZapine 5 MG RAPDIS TABLET PO PRN (20:57)
[2021-03-30] MEDS: ZOLPIDEM TARTRATE 10 MG TABLET PO PRN (21:50)
[2021-03-31 05:36] VITALS: BP 120/83
[2021-03-31 08:13] VITALS: BP 116/74
[2021-03-31] MEDS: OMEGA-3/DHA/EPA/FISH OIL 1,000 MG CAPSULE PO SCH (09:06)
[2021-03-31] MEDS: OLANZapine 5 MG RAPDIS TABLET PO SCH ×3 (09:06→16:02)
[2021-03-31] MEDS: NALTREXONE HCL 50 MG TABLET PO SCH (09:06)
[2021-03-31] MEDS: MULTIVITAMINS WITH MINERALS, THERAPEUTIC TABLET PO SCH (09:06)
[2021-03-31] MEDS: PREGABALIN 50 MG CAPSULE PO SCH ×3 (09:06→16:02)
[2021-03-31] MEDS: DULoxetine HCL 60 MG CAPSULE PO SCH (09:08)
[2021-03-31] MEDS: LORazepam 2 MG TABLET PO PRN (16:02)
[2021-03-31 16:13] VITALS: BP 133/71
[2021-03-31] MEDS: MELATONIN 5 MG TABLET PO SCH (20:14)
[2021-03-31] MEDS: DIVALPROEX SODIUM 500 MG ER TABLET PO SCH (20:14)
[2021-03-31] MEDS: ZOLPIDEM TARTRATE 10 MG TABLET PO PRN (21:02)
[2021-04-01 00:25] VITALS: BP 135/81
[2021-04-01 06:25] LABS: GLUCOMETER DEV NAME(LOC) BV2S.; GLUCOSE,POINT OF CARE 87 MG/DL (70-110)
[2021-04-01 08:11] VITALS: BP 122/65
[2021-04-01] MEDS: OMEGA-3/DHA/EPA/FISH OIL 1,000 MG CAPSULE PO SCH (09:22)
[2021-04-01] MEDS: DULoxetine HCL 60 MG CAPSULE PO SCH (09:22)
[2021-04-01] MEDS: PREGABALIN 50 MG CAPSULE PO SCH ×3 (09:23→16:29)
[2021-04-01] MEDS: MULTIVITAMINS WITH MINERALS, THERAPEUTIC TABLET PO SCH (09:23)
[2021-04-01] MEDS: NALTREXONE HCL 50 MG TABLET PO SCH (09:23)
[2021-04-01] MEDS: OLANZapine 5 MG RAPDIS TABLET PO SCH ×3 (09:24→16:02)
[2021-04-01] MEDS: OLANZapine 5 MG RAPDIS TABLET PO PRN ×2 (14:06→20:41)
[2021-04-01 16:15] VITALS: BP 115/80
[2021-04-01] MEDS: LORazepam 2 MG TABLET PO PRN (20:40)
[2021-04-01] MEDS: MELATONIN 5 MG TABLET PO SCH (21:29)
[2021-04-01] MEDS: DIVALPROEX SODIUM 500 MG ER TABLET PO SCH (21:30)
[2021-04-02 01:06] VITALS: BP 125/81
[2021-04-02 06:54] LABS: GLUCOMETER DEV NAME(LOC) BV2S.; GLUCOSE,POINT OF CARE 157 MG/DL (70-110)
[2021-04-02] MEDS: PREGABALIN 50 MG CAPSULE PO SCH ×3 (10:42→16:41)
[2021-04-02] MEDS: OLANZapine 5 MG RAPDIS TABLET PO SCH ×3 (10:43→16:41)
[2021-04-02] MEDS: MULTIVITAMINS WITH MINERALS, THERAPEUTIC TABLET PO SCH (10:43)
[2021-04-02] MEDS: OMEGA-3/DHA/EPA/FISH OIL 1,000 MG CAPSULE PO SCH (10:43)
[2021-04-02] MEDS: NALTREXONE HCL 50 MG TABLET PO SCH (10:44)
[2021-04-02] MEDS: DULoxetine HCL 60 MG CAPSULE PO SCH (10:44)
[2021-04-02 11:33] LABS: GLUCOMETER DEV NAME(LOC) BV2S.; GLUCOSE,POINT OF CARE 90 MG/DL (70-110)
[2021-04-02] MEDS: DIVALPROEX SODIUM 500 MG ER TABLET PO SCH (20:17)
[2021-04-02] MEDS: MELATONIN 5 MG TABLET PO SCH (20:17)
[2021-04-02] MEDS: OLANZapine 5 MG RAPDIS TABLET PO PRN (21:52)
[2021-04-03 01:03] VITALS: BP 123/77
[2021-04-03 06:23] LABS: GLUCOMETER DEV NAME(LOC) BV2S.; GLUCOSE,POINT OF CARE 83 MG/DL (70-110)
[2021-04-03] MEDS: LORazepam 2 MG TABLET PO PRN (07:12)
[2021-04-03 09:06] VITALS: BP 109/66
[2021-04-03] MEDS: MULTIVITAMINS WITH MINERALS, THERAPEUTIC TABLET PO SCH (09:31)
[2021-04-03] MEDS: OMEGA-3/DHA/EPA/FISH OIL 1,000 MG CAPSULE PO SCH (09:31)
[2021-04-03] MEDS: DULoxetine HCL 60 MG CAPSULE PO SCH (09:31)
[2021-04-03] MEDS: PREGABALIN 50 MG CAPSULE PO SCH ×3 (09:32→16:36)
[2021-04-03] MEDS: OLANZapine 5 MG RAPDIS TABLET PO SCH ×3 (09:32→16:36)
[2021-04-03] MEDS: NALTREXONE HCL 50 MG TABLET PO SCH (09:32)
[2021-04-03] MEDS: MELATONIN 5 MG TABLET PO SCH (20:25)
[2021-04-03] MEDS: DIVALPROEX SODIUM 500 MG ER TABLET PO SCH (20:25)
[2021-04-04 03:00] VITALS: BP 110/70
[2021-04-04] MEDS: OLANZapine 5 MG RAPDIS TABLET PO PRN (03:03)
[2021-04-04 04:46] VITALS: BP 112/66
[2021-04-04] MEDS: LORazepam 2 MG TABLET PO PRN (04:48)
[2021-04-04 04:52] VITALS: BP 108/66
[2021-04-04 07:09] LABS: GLUCOMETER DEV NAME(LOC) BV2S.; GLUCOSE,POINT OF CARE 93 MG/DL (70-110)
[2021-04-04 08:18] VITALS: BP 113/85
[2021-04-04] MEDS: DULoxetine HCL 60 MG CAPSULE PO SCH (09:55)
[2021-04-04] MEDS: OMEGA-3/DHA/EPA/FISH OIL 1,000 MG CAPSULE PO SCH (09:55)
[2021-04-04] MEDS: MULTIVITAMINS WITH MINERALS, THERAPEUTIC TABLET PO SCH (09:55)
[2021-04-04] MEDS: OLANZapine 5 MG RAPDIS TABLET PO SCH ×3 (09:55→16:46)
[2021-04-04] MEDS: PREGABALIN 50 MG CAPSULE PO SCH ×3 (09:57→16:46)
[2021-04-04] MEDS: NALTREXONE HCL 50 MG TABLET PO SCH (09:57)
[2021-04-04 16:11] VITALS: BP 111/68
[2021-04-04 17:02] LABS: GLUCOMETER DEV NAME(LOC) BV2S.; GLUCOSE,POINT OF CARE 110 MG/DL (70-110)
[2021-04-04] MEDS: DIVALPROEX SODIUM 500 MG ER TABLET PO SCH (20:01)
[2021-04-04] MEDS: MELATONIN 5 MG TABLET PO SCH (20:01)
[2021-04-04] MEDS ORDERED: MIRTAZAPINE 15 MG TABLET PO SCH (21:00)
[2021-04-05 01:08] VITALS: BP 109/79
[2021-04-05 02:24] VITALS: BP 127/86
[2021-04-05] MEDS: ZOLPIDEM TARTRATE 10 MG TABLET PO PRN ×2 (02:28→20:03)
[2021-04-05 06:39] LABS: GLUCOMETER DEV NAME(LOC) BV2S.; GLUCOSE,POINT OF CARE 92 MG/DL (70-110)
[2021-04-05 08:18] VITALS: BP 119/82
[2021-04-05] MEDS: DULoxetine HCL 60 MG CAPSULE PO SCH (09:28)
[2021-04-05] MEDS: OMEGA-3/DHA/EPA/FISH OIL 1,000 MG CAPSULE PO SCH (09:29)
[2021-04-05] MEDS: MULTIVITAMINS WITH MINERALS, THERAPEUTIC TABLET PO SCH (09:29)
[2021-04-05] MEDS: PREGABALIN 50 MG CAPSULE PO SCH ×3 (09:29→16:22)
[2021-04-05] MEDS: NALTREXONE HCL 50 MG TABLET PO SCH (09:29)
[2021-04-05] MEDS: OLANZapine 5 MG RAPDIS TABLET PO SCH ×3 (09:29→16:22)
[2021-04-05] MEDS: LORazepam 2 MG TABLET PO PRN (14:10)
[2021-04-05 16:21] VITALS: BP 118/81
[2021-04-05] MEDS: MELATONIN 5 MG TABLET PO SCH (20:03)
[2021-04-05] MEDS: DIVALPROEX SODIUM 500 MG ER TABLET PO SCH (20:03)
[2021-04-05] MEDS: MIRTAZAPINE 15 MG TABLET PO SCH (20:03)
[2021-04-05 21:18] LABS: GLUCOMETER DEV NAME(LOC) BV2S.; GLUCOSE,POINT OF CARE 171 MG/DL (70-110)
[2021-04-06 05:26] VITALS: BP 118/71
[2021-04-06 06:40] LABS: COVID AG,FIA SOURCE NASOPHARYNGEAL
[2021-04-06 08:34] VITALS: BP 129/84
[2021-04-06] MEDS: MULTIVITAMINS WITH MINERALS, THERAPEUTIC TABLET PO SCH (09:24)
[2021-04-06] MEDS: OMEGA-3/DHA/EPA/FISH OIL 1,000 MG CAPSULE PO SCH (09:24)
[2021-04-06] MEDS: OLANZapine 5 MG RAPDIS TABLET PO SCH ×3 (09:25→16:14)
[2021-04-06] MEDS: NALTREXONE HCL 50 MG TABLET PO SCH (09:25)
[2021-04-06] MEDS: PREGABALIN 50 MG CAPSULE PO SCH ×3 (09:26→16:13)
[2021-04-06] MEDS: DULoxetine HCL 60 MG CAPSULE PO SCH (09:26)
[2021-04-06] MEDS: LORazepam 2 MG TABLET PO PRN (16:15)
[2021-04-06 16:19] VITALS: BP 124/84
[2021-04-06 16:25] LABS: GLUCOMETER DEV NAME(LOC) BV2S.; GLUCOSE,POINT OF CARE 182 MG/DL (70-110)
[2021-04-06] MEDS: MIRTAZAPINE 15 MG TABLET PO SCH (20:10)
[2021-04-06] MEDS: MELATONIN 5 MG TABLET PO SCH (20:10)
[2021-04-06] MEDS: DIVALPROEX SODIUM 500 MG ER TABLET PO SCH (20:10)
[2021-04-06] MEDS: ZOLPIDEM TARTRATE 10 MG TABLET PO PRN (20:15)
[2021-04-07] MEDS: OLANZapine 5 MG RAPDIS TABLET PO PRN (00:59)
[2021-04-07] MEDS: LORazepam 2 MG TABLET PO PRN ×3 (00:59→20:05)
[2021-04-07 04:27] VITALS: BP 113/71
[2021-04-07 06:37] LABS: GLUCOMETER DEV NAME(LOC) BV2S.; GLUCOSE,POINT OF CARE 86 MG/DL (70-110)
[2021-04-07 08:19] VITALS: BP 125/86
[2021-04-07] MEDS: DULoxetine HCL 60 MG CAPSULE PO SCH (09:00)
[2021-04-07] MEDS: MULTIVITAMINS WITH MINERALS, THERAPEUTIC TABLET PO SCH (10:49)
[2021-04-07] MEDS: OMEGA-3/DHA/EPA/FISH OIL 1,000 MG CAPSULE PO SCH (10:49)
[2021-04-07] MEDS: OLANZapine 5 MG RAPDIS TABLET PO SCH ×3 (10:51→16:50)
[2021-04-07] MEDS: PREGABALIN 50 MG CAPSULE PO SCH ×3 (10:52→16:50)
[2021-04-07] MEDS: NALTREXONE HCL 50 MG TABLET PO SCH (10:53)
[2021-04-07 16:15] VITALS: BP 121/79
[2021-04-07 17:03] LABS: GLUCOMETER DEV NAME(LOC) BV2S.; GLUCOSE,POINT OF CARE 117 MG/DL (70-110)
[2021-04-07] MEDS: MELATONIN 5 MG TABLET PO SCH (20:36)
[2021-04-07] MEDS: DIVALPROEX SODIUM 500 MG ER TABLET PO SCH (20:36)
[2021-04-07] MEDS: MIRTAZAPINE 15 MG TABLET PO SCH (20:37)
[2021-04-08 01:31] VITALS: BP 120/80
[2021-04-08 05:56] VITALS: BP 120/80
[2021-04-08 06:32] LABS: GLUCOMETER DEV NAME(LOC) BV2S.; GLUCOSE,POINT OF CARE 148 MG/DL (70-110)
[2021-04-08] MEDS: PREGABALIN 50 MG CAPSULE PO SCH (08:15)
[2021-04-08] MEDS: MULTIVITAMINS WITH MINERALS, THERAPEUTIC TABLET PO SCH (08:16)
[2021-04-08] MEDS: OMEGA-3/DHA/EPA/FISH OIL 1,000 MG CAPSULE PO SCH (08:16)
[2021-04-08] MEDS: DULoxetine HCL 60 MG CAPSULE PO SCH (08:16)
[2021-04-08] MEDS: OLANZapine 5 MG RAPDIS TABLET PO SCH (08:17)
[2021-04-08] MEDS: NALTREXONE HCL 50 MG TABLET PO SCH (08:26)
[2021-04-08 08:34] VITALS: BP 138/86
[2021-04-08] MEDS ORDERED: OLAN5TAB94 PO (09:58)
[2021-04-08] MEDS ORDERED: MIRT-89 PO (09:58)
[2021-04-08] MEDS ORDERED: MELA5TAB40 PO (09:58)
[2021-04-08] MEDS ORDERED: DULO60CA44 PO (09:58)
[2021-04-08] MEDS ORDERED: NALT50TA PO (09:58)
[2021-04-08] MEDS ORDERED: PREG50 PO (09:58)
[2021-04-08] MEDS ORDERED: DIVA-80 PO (09:58)
== END 2021-04-08 11:30 | disposition home or self-care (01) | DRG 750 ==
LOC: B2S 08:00
PROVIDERS: ADMIT Psychiatry & Neurology Psychiatry; ATTEND Psychiatry & Neurology Psychiatry
DX: F25.1 Schizoaffective disorder, depressive type (principal); Z59.0 Homelessness; F41.9 Anxiety disorder, unspecified; G89.29 Other chronic pain; G47.00 Insomnia, unspecified; I10 Essential (primary) hypertension; Z20.822 Contact with and (suspected) exposure to COVID-19; K21.9 Gastro-esophageal reflux disease without esophagitis; J44.9 Chronic obstructive pulmonary disease, unspecified; Z79.899 Other long term (current) drug therapy; Z85.72 Personal history of non-Hodgkin lymphomas; Z87.891 Personal history of nicotine dependence; Z88.0 Allergy status to penicillin; Z91.14 Patient's other noncompliance with medication regimen
CPT/HCPCS: 80053; 80061; 80164; 80307; 81003; 82962; 83036; 84439; 84443; 85025; 86592; Q9967

== ENCOUNTER 2024-08-17 08:28 | Inpatient (IN) | payer MEDICAID ==
[~2024-08-17] VITALS: Ht 177.8 cm; Wt 114.3 kg
[~2024-08-17 08:28] MED LIST changes: -BUSP10TA23 PO; +DIVA-153 PO; -DIVA-80 PO; +DULO-113 PO; +DULO60CA45 PO; -DULO60CA98 PO; +MELA5TAB40 PO; +MIRT-89 PO; +NALT50TA6 PO; -OLAN10TA22 PO; +OLAN5TAB94 PO
[2024-08-17] MEDS ORDERED: HALOPERIDOL 5 MG TABLET PO PRN (09:45)
[2024-08-17 10:21] LABS: GLUCOMETER DEV NAME(LOC) POC.BV; POC SARS-COV2 AG, FIA NEGATIVE (NEGATIVE)
[2024-08-17 14:36] LABS: GLUCOMETER DEV NAME(LOC) BV3N.2; GLUCOSE,POINT OF CARE 165 MG/DL (70-110)
[2024-08-17] MEDS ORDERED: CloNIDine HCL 0.1 MG TABLET PO PRN (14:45)
[2024-08-17] MEDS ORDERED: LOPERAMIDE HCL 2 MG CAPSULE PO PRN (14:45)
[2024-08-17] MEDS ORDERED: GLUCAGON,HUMAN RECOMBINANT 1 MG VIAL IM PRN (14:45)
[2024-08-17] MEDS ORDERED: DOCUSATE SODIUM 100 MG CAPSULE PO PRN (14:45)
[2024-08-17] MEDS ORDERED: MAG HYDROX/ALUMINUM HYD/SIMETH ES 30 ML SUSPENSION UDCUP PO PRN (14:45)
[2024-08-17] MEDS ORDERED: ALBUTEROL SULFATE HFA 90 MCG/PUFF 8 GM INHALER IH PRN (14:45)
[2024-08-17] MEDS ORDERED: ONDANSETRON 4 MG TABLET PO PRN (14:45)
[2024-08-17] MEDS ORDERED: NICOTINE 14 MG/24 HOUR PATCH TD PRN (14:45)
[2024-08-17] MEDS ORDERED: GuaiFENesin/D-METHORPHAN [SUGAR-FREE] 200-20MG/10 ML SYRUP UDCUP PO PRN (14:45)
[2024-08-17] MEDS ORDERED: MAGNESIUM HYDROXIDE SUSPENSION 30 ML UDCUP PO PRN (14:45)
[2024-08-17] MEDS ORDERED: PETROLATUM,WHITE 28 GM JELLY TP PRN (14:45)
[2024-08-17] MEDS ORDERED: IBUPROFEN 400 MG TABLET PO PRN (14:45)
[2024-08-17] MEDS: DIVALPROEX SODIUM 500 MG DR TABLET PO SCH (16:05)
[2024-08-17] MEDS: RisperiDONE 1 MG TABLET PO SCH (16:05)
[2024-08-17 17:05] VITALS: BP 130/85; PULSE 110; RESP 18; TEMP 98; O2SAT 99
[2024-08-17 20:24] VITALS: BP 126/74; PULSE 88; RESP 18; TEMP 98; O2SAT 99
[2024-08-18] MEDS: LORazepam 2 MG TABLET PO PRN (00:50)
[2024-08-18] MEDS ORDERED: INFLUENZA VIRUS VACCINE TVS (6MO+) 2024-25/PF 45 MCG/0.5 ML SYRINGE IM. ONE (03:30)
[2024-08-18 05:30] LABS: GLUCOMETER DEV NAME(LOC) BV3N.2; GLUCOSE,POINT OF CARE 122 MG/DL (70-110)
[2024-08-18 06:36] LABS: GLUCOMETER DEV NAME(LOC) BV3N.2; GLUCOSE,POINT OF CARE 100 MG/DL (70-110)
[2024-08-18 08:37] LABS: BASOPHILS % (AUTO) 0.1 % (0.0-2.0); EOSINOPHILS % (AUTO) 6.1 % (1.0-6.0); HEMOGLOBIN 13.4 g/dL (13.5-17.5); MEAN CORPUSCULAR HGB CONC 32.6 G/dL (31.0-37.0); MEAN CORPUSCULAR VOLUME 86 fL (80-100); MONOCYTES # (AUTO) 0.7 K/uL (0.1-1.0); NEUTROPHILS # (AUTO) 3.8 K/uL (1.8-7.7); NEUTROPHILS % (AUTO) 46.8 % (40.0-70.0); PLATELET COUNT (AUTO) 306 K/uL (150-450); RED BLOOD CELL COUNT(AUTO) 4.77 MIL/uL (4.50-5.90); RED CELL DISTRIBUTION WIDTH 16.4 % (11.5-14.5)
[2024-08-18 08:55] LABS: ALANINE AMINOTRANSFERASE 24 U/L (12-78); ALBUMIN 2.9 g/dL (3.4-5.0); ALKALINE PHOSPHATASE 58 U/L (46-116); ANION GAP 6 mmol/L (8-16); ASPARTATE AMINOTRANSFERASE 13 U/L (15-37); BILIRUBIN,TOTAL 0.3 mg/dL (0.1-1.0); CARBON DIOXIDE 30 mmol/L (22-29); CHLORIDE 109 mmol/L (98-107); CHOL/HDL RATIO 5.5 (4.2-7.3); CHOLESTEROL 188 mg/dL (131-200); CREATININE 1.06 mg/dL (0.60-1.30); GLOMERULAR FILTR. RATE CALC > 60 mL/min (>60); GLUCOSE,RANDOM 89 mg/dL (70-110); HDL CHOLESTEROL 34 mg/dL (40-60); HEMOGLOBIN A1C 6.5 % (3.8-5.6); LDL CHOL (CALC.) 125 mg/dL (0-130); POTASSIUM 4.5 mmol/L (3.5-5.1); SODIUM SERUM 145 mmol/L (136-145); THYROID STIMULATING HORMONE 0.81 uIU/mL (0.36-3.74); TOTAL PROTEIN, SERUM 6.7 g/dL (6.4-8.2); TRIGLYCERIDES 147 mg/dL (15-150); UREA NITROGEN, BLOOD 16 mg/dL (7-18)
[2024-08-18 12:46] LABS: GLUCOMETER DEV NAME(LOC) BV3N.2; GLUCOSE,POINT OF CARE 216 MG/DL (70-110)
[2024-08-18 13:08] VITALS: BP 106/71; RESP 16; TEMP 97.9; O2SAT 96
[2024-08-18 20:07] VITALS: RESP 16; TEMP 97.8
[2024-08-18] MEDS: LURASIDONE HCL 80 MG TABLET PO SCH (20:10)
[2024-08-18 21:05] LABS: GLUCOMETER DEV NAME(LOC) BV3N.2; GLUCOSE,POINT OF CARE 113 MG/DL (70-110)
[2024-08-19 07:10] LABS: GLUCOMETER DEV NAME(LOC) BV3N.2; GLUCOSE,POINT OF CARE 113 MG/DL (70-110)
[2024-08-19 09:09] LABS: APPEARANCE,URINE TURBID (CLEAR); BILIRUBIN,URINE NEGATIVE (NEGATIVE); COLOR,URINE LIGHT ORANGE (YELLOW); GLUCOSE, URINE (UA) 300-500 mg/dL (NEGATIVE); LEUKOCYTE ESTERASE ,URINE NEGATIVE (NEGATIVE); NITRATE,URINE NEGATIVE (NEGATIVE); OCCULT BLOOD,URINE NEGATIVE (NEGATIVE); PROTEIN,URINE TRACE mg/dL (NEGATIVE); UROBILINOGEN,URINE <=1.0 mg/dL (<=1.0)
[2024-08-19 09:15] LABS: ALCOHOL, URINE DRUG SCREEN NEGATIVE (NEGATIVE); BARBITURATE SCREEN, URINE NEGATIVE (NEGATIVE); BENZODIAZEPINES SCREEN,URINE NEGATIVE (NEGATIVE); CANNABINOID SCREEN,URINE NEGATIVE (NEGATIVE); COCAINE SCREEN,URINE NEGATIVE (NEGATIVE); METHADONE SCREEN, URINE NEGATIVE (NEGATIVE); OPIATE SCREEN,URINE NEGATIVE (NEGATIVE); PHENCYCLIDINE SCREEN,URINE NEGATIVE (NEGATIVE)
[2024-08-19 09:31] LABS: AMPHET/METH SCREEN,URINE POSITIVE (NEGATIVE)
[2024-08-19 10:03] LABS: AMORPHOUS SEDIMENT,UR Many /LPF (None Seen); BACTERIA,URINE Few /HPF (None Seen); CALCIUM OXALATE CRYSTALS,UR Few /LPF (None Seen); RBC,URINE None Seen /HPF (0-2); SQUAMOUS EPITHELIAL CELL,UR Few /LPF (None Seen); WBC,URINE None Seen /HPF (0-5); YEAST,URINE None Seen /HPF (None Seen)
[2024-08-19 10:54] VITALS: RESP 17
[2024-08-19 17:51] LABS: GLUCOMETER DEV NAME(LOC) BV3N.2; GLUCOSE,POINT OF CARE 122 MG/DL (70-110)
[2024-08-19 17:51] LABS: GLUCOMETER DEV NAME(LOC) BV3N.2; GLUCOSE,POINT OF CARE 131 MG/DL (70-110)
[2024-08-19 20:06] VITALS: BP 111/60; PULSE 77; RESP 18; TEMP 97.9; O2SAT 100
[2024-08-19] MEDS: ZOLPIDEM TARTRATE 10 MG TABLET PO PRN (21:03)
[2024-08-20 07:05] LABS: GLUCOMETER DEV NAME(LOC) BV3N.2; GLUCOSE,POINT OF CARE 100 MG/DL (70-110)
[2024-08-20 10:15] VITALS: BP 112/66; PULSE 98; RESP 17; TEMP 97.8; O2SAT 100
[2024-08-20 16:31] LABS: GLUCOMETER DEV NAME(LOC) BV3N.2; GLUCOSE,POINT OF CARE 168 MG/DL (70-110)
[2024-08-20] MEDS: MetFORMIN HCL 500 MG TABLET PO SCH (16:38)
[2024-08-20 20:30] VITALS: BP 148/96; PULSE 129; RESP 18; TEMP 97.7; O2SAT 95
[2024-08-20 22:31] LABS: GLUCOMETER DEV NAME(LOC) BV3N.2; GLUCOSE,POINT OF CARE 127 MG/DL (70-110)
[2024-08-21 07:31] VITALS: BP 132/86; PULSE 108; RESP 18; TEMP 97.6; O2SAT 97
[2024-08-21] MEDS: METOPROLOL SUCCINATE 25 MG ER TABLET PO SCH (09:23)
[2024-08-21 10:54] VITALS: BP 119/72; PULSE 101; RESP 17; TEMP 97.8; O2SAT 97
[2024-08-21 12:11] LABS: GLUCOMETER DEV NAME(LOC) BV3N.2; GLUCOSE,POINT OF CARE 110 MG/DL (70-110)
[2024-08-21] MEDS: INSULIN LISPRO 100 UNITS/ML SQ PRN (17:08)
[2024-08-21 17:10] LABS: GLUCOMETER DEV NAME(LOC) BV3N.2; GLUCOSE,POINT OF CARE 145 MG/DL (70-110)
[2024-08-21 20:07] VITALS: BP 147/96; PULSE 113; RESP 17; TEMP 97.7
[2024-08-22 06:15] LABS: GLUCOMETER DEV NAME(LOC) BV3N.2; GLUCOSE,POINT OF CARE 107 MG/DL (70-110)
[2024-08-22 11:41] LABS: GLUCOMETER DEV NAME(LOC) BV3N.2; GLUCOSE,POINT OF CARE 83 MG/DL (70-110)
[2024-08-22 13:01] VITALS: BP 125/88; PULSE 114; RESP 17; TEMP 97.7; O2SAT 97
[2024-08-22] MEDS ORDERED: DIVA-112 PO (13:18)
[2024-08-22] MEDS ORDERED: RISP-31 PO (13:18)
[2024-08-22] MEDS ORDERED: LURA80TA2 PO (15:07)
[2024-08-22] MEDS ORDERED: METF-1211 PO (15:08)
[2024-08-22] MEDS ORDERED: METO25XL PO (15:12)
== END 2024-08-22 17:14 | disposition home or self-care (01) | DRG 750 ==
LOC: B3A 09:31
PROVIDERS: ADMIT Psychiatry & Neurology Psychiatry; ATTEND Psychiatry & Neurology Psychiatry
DX: F25.9 Schizoaffective disorder, unspecified (principal); E11.9 Type 2 diabetes mellitus without complications; R45.851 Suicidal ideations; C85.90 Non-Hodgkin lymphoma, unspecified, unspecified site; Y90.9 Presence of alcohol in blood, level not specified; G40.909 Epilepsy, unspecified, not intractable, without status epilepticus; Z20.822 Contact with and (suspected) exposure to COVID-19; F15.10 Other stimulant abuse, uncomplicated; I10 Essential (primary) hypertension; F10.90 Alcohol use, unspecified, uncomplicated; Z71.6 Tobacco abuse counseling; Z88.0 Allergy status to penicillin; Z72.0 Tobacco use
CPT/HCPCS: 80053; 80061; 80307; 81001; 82962; 83036; 84443; 85025; 90686

== ENCOUNTER 2024-08-20 23:15 | Emergency (ER) | payer MEDICAID ==
[~2024-08-20] VITALS: Ht 180.3 cm; Wt 100.0 kg
[2024-08-20 23:25] VITALS: TEMP 97.8
[2024-08-21 02:02] LABS: BASOPHILS % (AUTO) 1.1 % (0.0-2.0); HEMATOCRIT 40.9 % (41-53); HEMOGLOBIN 13.3 g/dL (13.5-17.5); LYMPHOCYTES # (AUTO) 3.3 K/uL (1.0-4.8); LYMPHOCYTES % (AUTO) 30.8 % (22.0-44.0); MEAN CORPUSCULAR HGB CONC 32.4 G/dL (31.0-37.0); MEAN CORPUSCULAR VOLUME 86 fL (80-100); MONOCYTES # (AUTO) 0.9 K/uL (0.1-1.0); MONOCYTES % (AUTO) 8.3 % (2.0-9.0); NEUTROPHILS % (AUTO) 56.8 % (40.0-70.0); PLATELET COUNT (AUTO) 335 K/uL (150-450); RED BLOOD CELL COUNT(AUTO) 4.74 MIL/uL (4.50-5.90); RED CELL DISTRIBUTION WIDTH 16.1 % (11.5-14.5); WHITE BLOOD COUNT (AUTO) 10.6 K/uL (4.5-11.0)
[2024-08-21 02:11] LABS: ANION GAP 7 mmol/L (8-16); CALCIUM, TOTAL 9.4 mg/dL (8.8-10.5); CARBON DIOXIDE 27 mmol/L (22-29); CHLORIDE 106 mmol/L (98-107); CREATININE 0.99 mg/dL (0.60-1.30); GLOMERULAR FILTR. RATE CALC > 60 mL/min (>60); GLUCOSE,RANDOM 103 mg/dL (70-110); POTASSIUM 4.2 mmol/L (3.5-5.1); SODIUM SERUM 140 mmol/L (136-145); UREA NITROGEN, BLOOD 17 mg/dL (7-18)
[2024-08-21 02:17] LABS: B-TYPE NATRIURETIC PEPTIDE < 5 pg/mL (0-100)
[2024-08-21 02:19] LABS: PROTHROMBIN TIME 10.3 SEC (9.4-11.6)
[2024-08-21 02:20] LABS: CREATINE KINASE, TOTAL ONLY 78 U/L (39-308); TROPONIN I-HIGH SENSITIVITY 33 ng/L (<76)
[2024-08-21 03:15] VITALS: BP 112/62; PULSE 105; RESP 18; O2SAT 98
[2024-08-21 04:21] LABS: APPEARANCE,URINE CLEAR (CLEAR); BILIRUBIN,URINE NEGATIVE (NEGATIVE); COLOR,URINE LIGHT YELLOW (YELLOW); GLUCOSE, URINE (UA) NEGATIVE (NEGATIVE); KETONES,URINE TRACE mg/dL (NEGATIVE); LEUKOCYTE ESTERASE ,URINE NEGATIVE (NEGATIVE); NITRATE,URINE NEGATIVE (NEGATIVE); OCCULT BLOOD,URINE NEGATIVE (NEGATIVE); PH,URINE 5.5 (5.0-8.0); PROTEIN,URINE NEGATIVE (NEGATIVE); SPECIFIC GRAVITIY, URINE 1.023 (1.003-1.030); UROBILINOGEN,URINE <=1.0 mg/dL (<=1.0)
[2024-08-22] MEDS ORDERED: RISP-31 PO (13:18)
[2024-08-22] MEDS ORDERED: DIVA-112 PO (13:18)
[2024-08-22] MEDS ORDERED: LURA80TA2 PO (15:07)
[2024-08-22] MEDS ORDERED: METF-1211 PO (15:08)
[2024-08-22] MEDS ORDERED: METO25XL PO (15:12)
== END 2024-08-21 07:07 ==
LOC: EMS 23:33
DX: F25.9 Schizoaffective disorder, unspecified (principal); J45.909 Unspecified asthma, uncomplicated; I10 Essential (primary) hypertension; Z88.0 Allergy status to penicillin; Z59.00 Homelessness unspecified; Z79.899 Other long term (current) drug therapy
CPT/HCPCS: 71045; 80048; 81003; 82550; 83880; 84484; 85025; 85379; 85610; 85730; 93005; 99285; 36415-L1; 36415-TC